=== PATIENT | male | born 1940 | race Caucasian/White ===

== ENCOUNTER 2020-07-09 10:51 | Inpatient (IN) ==
[2020-07-09] MEDS ORDERED: Ondansetron 4 mg VIAL 2 MG/ML 2 ml VIAL IV PRN (11:52)
[2020-07-09] MEDS ORDERED: NS 0.9% 1000 ml BAG 1,000 ML IV SCH (12:00)
[2020-07-09] MEDS ORDERED: Enoxaparin 40 MG/0.4 ML SYR SUBCUT SCH (12:00)
[2020-07-09 12:37] LABS: ABS Lymphocytes 1.3 10^3/ul (1.0-4.8); ABS Monocytes 0.9 10^3/ul (0-0.8); ABS Neutrophils 9.8 10^3/ul (1.5-7.7); Eosinophil % 0.2 %; Hematocrit 41 % (42-52); Hemoglobin 14.2 g/dL (14.0-18.0); Mean Corpuscular HGB Conc 35 g/dL (31-36); Mean Corpuscular Hemoglobin 35 pg (27-31); Mean Corpuscular Volume 100 fL (80-94); Mean Platelet Volume 6.9 fL (7.4-10.4); Platelet Count 352 10^3/uL (150-450); Red Blood Count 4.04 10^6 /uL (4.18-5.48); Red Cell Distribution Width 13 % (10-15)
[2020-07-09 12:57] LABS: BUN/Creatinine Ratio 21.6 (8-20); C Reactive Protein 19.18 mg/L (<8.01); Calcium 9.9 mg/dL (8.6-10.3); EGFR African American 90.8 (>60); Magnesium 2.1 mg/dL (1.9-2.7); Potassium 3.5 mmol/L (3.5-5.0)
[2020-07-09] MEDS: ceFAZolin 2 GM PREMIX 2 GM/50 ML BAG IVPB SCH ×2 (15:41→23:45)
[2020-07-09] MEDS ORDERED: Metoprolol Tartrate 5 mg VIAL 5 ml VIAL (1 mg/ml) IV ONE (16:17)
[2020-07-10] MEDS ORDERED: Metoprolol Tartrate 5 mg VIAL 5 ml VIAL (1 mg/ml) IV ONE ×2 (06:37→08:54)
[2020-07-10] MEDS ORDERED: Metoprolol Tartrate 5 mg VIAL 5 ml VIAL (1 mg/ml) ONE (06:39)
[2020-07-10 07:33] LABS: Blood Urea Nitrogen 15 mg/dL (6-24); CO2 Carbon Dioxide 23 mmol/L (22-32); Calcium 8.9 mg/dL (8.6-10.3); Chloride 102 mmol/L (101-111); EGFR African American 101.6 (>60); Glucose 103 mg/dL (70-100); Magnesium 1.8 mg/dL (1.9-2.7); Sodium 130 mmol/L (135-145)
[2020-07-10] MEDS: Fluticasone NASAL SPRAY 50MCG 16 gm SPRAY BTL BOTH NARES SCH (08:03)
[2020-07-10] MEDS: ceFAZolin 2 GM PREMIX 2 GM/50 ML BAG IVPB SCH ×3 (08:04→23:35)
[2020-07-10 08:40] LABS: Hematocrit 38 % (42-52); Hemoglobin 13.5 g/dL (14.0-18.0); Mean Corpuscular HGB Conc 36 g/dL (31-36); Mean Corpuscular Hemoglobin 35 pg (27-31); Mean Corpuscular Volume 99 fL (80-94); Mean Platelet Volume 7.5 fL (7.4-10.4); Platelet Count 323 10^3/uL (150-450); Red Blood Count 3.82 10^6 /uL (4.18-5.48); Red Cell Distribution Width 12 % (10-15); White Blood Count 9.6 10^3/uL (3.5-10.8)
[2020-07-10 09:43] LABS: Anion Gap 5 mmol/L (2-11)
[2020-07-10] MEDS ORDERED: Magnesium Sulfate 2 gm BAG 2 GM/50 ML BAG IVPB ONE (09:51)
[2020-07-10] MEDS ORDERED: Magnesium Sulfate 2 gm BAG 2 GM/50 ML BAG ONE (09:55)
[2020-07-10 11:10] LABS: TSH Ultra Thyroid Stim Horm 0.85 mcIU/mL (0.34-5.60)
[2020-07-10 11:12] LABS: Free T4 1.46 ng/dL (0.61-1.12)
[2020-07-10 11:14] LABS: Troponin I 0.32 ng/mL (<0.03)
[2020-07-10] MEDS ORDERED: Diltiazem IV push/loading dose 5 MG/ML 5 ML vial (25 mg) IV SLOW PU ONE (11:30)
[2020-07-10] MEDS: Multivitamins/Mins AREDS2 (NF) CAP PO SCH (11:49)
[2020-07-10] MEDS: SPIRIVA Respimat (tiotropium) 2.5 mcg/inh Inhaler INH SCH (12:51)
[2020-07-10 13:04] LABS: Total T3 63 ng/dL (87-178)
[2020-07-10] MEDS ORDERED: Diltiazem (ADVAN VIAL) 100 MG/100 ML ADDV.BAG IV SCH ×3 (14:00→17:27)
[2020-07-10 16:42] LABS: Troponin I 0.27 ng/mL (<0.03)
[2020-07-11 04:32] LABS: ABS Eosinophils 0.1 10^3/ul (0-0.6); ABS Lymphocytes 0.8 10^3/ul (1.0-4.8); ABS Monocytes 1.1 10^3/ul (0-0.8); ABS Neutrophils 9.7 10^3/ul (1.5-7.7); Eosinophil % 1.1 %; Hematocrit 38 % (42-52); Hemoglobin 13.3 g/dL (14.0-18.0); Lymphocyte % 6.7 %; Mean Corpuscular HGB Conc 35 g/dL (31-36); Mean Corpuscular Hemoglobin 35 pg (27-31); Mean Corpuscular Volume 99 fL (80-94); Nucleated Red Blood Cells % 0.1; Platelet Count 329 10^3/uL (150-450); Red Cell Distribution Width 12 % (10-15); White Blood Count 11.7 10^3/uL (3.5-10.8)
[2020-07-11 04:51] LABS: BUN/Creatinine Ratio 18.3 (8-20); Calcium 8.7 mg/dL (8.6-10.3); EGFR African American 110.2 (>60); EGFR Non-African American 91.1 (>60); Potassium 3.5 mmol/L (3.5-5.0)
[2020-07-11] MEDS ORDERED: Potassium Chlor 20 meq TAB.ER PO ONE (05:01)
[2020-07-11] MEDS ORDERED: Naloxone 0.4 mg VIAL 0.4 mg/ml 1 ml VIAL ONE (07:30)
[2020-07-11] MEDS ORDERED: fentaNYL 100 mcg/2 ml 50 MCG/ML VIAL ONE (07:30)
[2020-07-11] MEDS ORDERED: Flumazenil 0.5 mg/5 ml 0.1 MG/ML 5 ml VIAL ONE (07:30)
[2020-07-11] MEDS ORDERED: Midazolam 5 mg/5 ml VIAL 1 mg/ml 5 ml VIAL (5 mg) ONE (07:30)
[2020-07-11] MEDS: ceFAZolin 2 GM PREMIX 2 GM/50 ML BAG IVPB SCH ×3 (07:33→23:10)
[2020-07-11] MEDS: SPIRIVA Respimat (tiotropium) 2.5 mcg/inh Inhaler INH SCH (11:57)
[2020-07-11] MEDS: Fluticasone NASAL SPRAY 50MCG 16 gm SPRAY BTL BOTH NARES SCH (11:57)
[2020-07-11] MEDS: Multivitamins/Mins AREDS2 (NF) CAP PO SCH (11:57)
[2020-07-11] MEDS ORDERED: Enoxaparin 100 MG/ML SYR SUBCUT ONE (16:03)
[2020-07-11] MEDS ORDERED: Enoxaparin 100 MG/ML SYR ONE (16:08)
[2020-07-12] MEDS ORDERED: Lactated Ringers 1000 ml BAG 1,000 ML IV ONE (00:49)
[2020-07-12 05:00] LABS: ABS Eosinophils 0.4 10^3/ul (0-0.6); ABS Lymphocytes 1.6 10^3/ul (1.0-4.8); ABS Monocytes 1.2 10^3/ul (0-0.8); ABS Neutrophils 8.6 10^3/ul (1.5-7.7); Hematocrit 42 % (42-52); Hemoglobin 14.5 g/dL (14.0-18.0); Lymphocyte % 13.8 %; Mean Corpuscular HGB Conc 34 g/dL (31-36); Mean Corpuscular Hemoglobin 34 pg (27-31); Mean Corpuscular Volume 100 fL (80-94); Mean Platelet Volume 7.1 fL (7.4-10.4); Platelet Count 392 10^3/uL (150-450); Red Blood Count 4.21 10^6 /uL (4.18-5.48); Red Cell Distribution Width 12 % (10-15); White Blood Count 11.8 10^3/uL (3.5-10.8)
[2020-07-12 05:07] LABS: INR 1.25 (0.82-1.09)
[2020-07-12 05:24] LABS: BUN/Creatinine Ratio 21.7 (8-20); Calcium 9.5 mg/dL (8.6-10.3); EGFR African American 108.7 (>60); EGFR Non-African American 89.8 (>60); Potassium 4.1 mmol/L (3.5-5.0)
[2020-07-12] MEDS: ceFAZolin 2 GM PREMIX 2 GM/50 ML BAG IVPB SCH ×3 (06:41→23:29)
[2020-07-12] MEDS: Multivitamins/Mins AREDS2 (NF) CAP PO SCH (08:25)
[2020-07-12] MEDS: Fluticasone NASAL SPRAY 50MCG 16 gm SPRAY BTL BOTH NARES SCH (08:27)
[2020-07-12] MEDS: SPIRIVA Respimat (tiotropium) 2.5 mcg/inh Inhaler INH SCH (11:33)
[2020-07-12] MEDS ORDERED: Diltiazem IV push/loading dose 5 MG/ML 5 ML vial (25 mg) IV SLOW PU ONE (12:45)
[2020-07-12] MEDS ORDERED: Diltiazem IV push/loading dose 5 MG/ML 5 ML vial (25 mg) ONE (13:03)
[2020-07-12] MEDS ORDERED: Metoprolol Tartrate 5 mg VIAL 5 ml VIAL (1 mg/ml) IV PRN ×2 (15:20→16:25)
[2020-07-12] MEDS ORDERED: Bupivacaine 0.25% SDV 30 ML ONE (16:40)
[2020-07-12] MEDS: Metoprolol Tartrate 5 mg VIAL 5 ml VIAL (1 mg/ml) IV PRN (17:30)
[2020-07-12] MEDS ORDERED: Lidocaine 1% VIAL 10 MG/ML VIAL ONE (17:59)
[2020-07-13] MEDS: ceFAZolin 2 GM PREMIX 2 GM/50 ML BAG IVPB SCH ×3 (06:43→23:04)
[2020-07-13 07:04] LABS: Hematocrit 41 % (42-52); Hemoglobin 14.4 g/dL (14.0-18.0); Platelet Count 386 10^3/uL (150-450)
[2020-07-13 07:36] LABS: BUN/Creatinine Ratio 20.8 (8-20); Calcium 9.3 mg/dL (8.6-10.3); EGFR African American 118.5 (>60)
[2020-07-13] MEDS: Fluticasone NASAL SPRAY 50MCG 16 gm SPRAY BTL BOTH NARES SCH (08:25)
[2020-07-13] MEDS: SPIRIVA Respimat (tiotropium) 2.5 mcg/inh Inhaler INH SCH (08:25)
[2020-07-13] MEDS: Multivitamins/Mins AREDS2 (NF) CAP PO SCH (08:33)
[2020-07-14 06:04] LABS: Hematocrit 39 % (42-52); Hemoglobin 13.6 g/dL (14.0-18.0); Mean Platelet Volume 6.8 fL (7.4-10.4); Platelet Count 391 10^3/uL (150-450)
[2020-07-14 06:14] LABS: BUN/Creatinine Ratio 21.7 (8-20); Calcium 9.1 mg/dL (8.6-10.3); EGFR African American 108.7 (>60); EGFR Non-African American 89.8 (>60); Potassium 3.8 mmol/L (3.5-5.0)
[2020-07-14] MEDS: ceFAZolin 2 GM PREMIX 2 GM/50 ML BAG IVPB SCH ×3 (07:02→23:14)
[2020-07-14] MEDS: Fluticasone NASAL SPRAY 50MCG 16 gm SPRAY BTL BOTH NARES SCH (08:31)
[2020-07-14] MEDS: SPIRIVA Respimat (tiotropium) 2.5 mcg/inh Inhaler INH SCH (08:32)
[2020-07-14] MEDS: Multivitamins/Mins AREDS2 (NF) CAP PO SCH (08:33)
[2020-07-15 06:57] LABS: Hematocrit 38 % (42-52); Hemoglobin 13.5 g/dL (14.0-18.0); Platelet Count 408 10^3/uL (150-450)
[2020-07-15] MEDS: ceFAZolin 2 GM PREMIX 2 GM/50 ML BAG IVPB SCH ×2 (07:01→15:55)
[2020-07-15 07:18] LABS: BUN/Creatinine Ratio 18.5 (8-20); Calcium 9.1 mg/dL (8.6-10.3); EGFR African American 111.8 (>60); EGFR Non-African American 92.4 (>60); Potassium 3.7 mmol/L (3.5-5.0)
[2020-07-15] MEDS: Multivitamins/Mins AREDS2 (NF) CAP PO SCH (09:08)
[2020-07-15] MEDS: Fluticasone NASAL SPRAY 50MCG 16 gm SPRAY BTL BOTH NARES SCH (09:09)
[2020-07-15] MEDS: SPIRIVA Respimat (tiotropium) 2.5 mcg/inh Inhaler INH SCH (09:09)
[2020-07-15] MEDS: Metoprolol Tartrate 5 mg VIAL 5 ml VIAL (1 mg/ml) IV PRN (09:44)
[2020-07-15] MEDS: Iohexol 350 (CONTRAST) 500 ML MDV IV ONE ×2 (11:13→11:22)
[2020-07-15] MEDS ORDERED: NS 0.9% 500 ml BAG 500 ML IV ONE ×2 (13:19→14:28)
[2020-07-15 15:52] VITALS: BP 127/60
== END 2020-07-15 17:05 | disposition home or self-care (01) | DRG 503 ==
LOC: ED 10:51 → MED 14:23 → MEDTELE 07-10 13:12 → ICU 07-10 20:08 → SSU 07-12 19:38
PROVIDERS: ADMIT Internal Medicine; ATTEND Student in an Organized Health Care Education/Training Program

== ENCOUNTER 2020-07-18 17:28 | Inpatient (IN) ==
[2020-07-18] MEDS ORDERED: Morphine 4 MG/ML VIAL (1 ml) IV ONE (18:00)
[2020-07-18] MEDS ORDERED: NS 0.9% 1000 ml BAG 1,000 ML IV ONE ×2 (18:00→19:45)
[2020-07-18] MEDS ORDERED: Ondansetron 4 mg VIAL 2 MG/ML 2 ml VIAL IV ONE (18:02)
[2020-07-18] MEDS ORDERED: Pantoprazole VIAL 40 MG VIAL IV ONE (18:07)
[2020-07-18] MEDS ORDERED: Iohexol 300 (CONTRAST) 10 ML SDV IV ONE (18:16)
[2020-07-18 18:23] LABS: ABS Basophils 0.1 10^3/ul (0-0.2); ABS Eosinophils 0.1 10^3/ul (0-0.6); ABS Lymphocytes 0.7 10^3/ul (1.0-4.8); ABS Monocytes 0.6 10^3/ul (0-0.8); ABS Neutrophils 16.1 10^3/ul (1.5-7.7); Eosinophil % 0.3 %; Hematocrit 40 % (42-52); Lymphocyte % 4.1 %; Mean Corpuscular HGB Conc 35 g/dL (31-36); Mean Corpuscular Hemoglobin 35 pg (27-31); Mean Corpuscular Volume 99 fL (80-94); Mean Platelet Volume 6.4 fL (7.4-10.4); Platelet Count 464 10^3/uL (150-450); Red Cell Distribution Width 12 % (10-15); White Blood Count 17.5 10^3/uL (3.5-10.8)
[2020-07-18 18:43] LABS: Albumin 3.7 g/dL (3.2-5.2); Albumin/Globulin Ratio 1.2 (1-3); BUN/Creatinine Ratio 21.1 (8-20); C Reactive Protein 20.26 mg/L (<8.01); Calcium 9.9 mg/dL (8.6-10.3); EGFR African American 120.3 (>60); EGFR Non-African American 99.5 (>60); Potassium 3.9 mmol/L (3.5-5.0); Total Bilirubin 0.9 mg/dL (0.2-1.0); Total Protein 6.7 g/dL (6.4-8.9)
[2020-07-18] MEDS ORDERED: Morphine 2 MG/ML SYRINGE IV PRN (23:29)
[2020-07-18] MEDS ORDERED: ceFAZolin 2 GM PREMIX 2 GM/50 ML BAG IVPB ONE (23:30)
[2020-07-18] MEDS ORDERED: Ondansetron 4 mg VIAL 2 MG/ML 2 ml VIAL IV PRN (23:37)
[2020-07-18] MEDS ORDERED: Furosemide 40 mg/4 ml IV VIAL IV ONE (23:46)
[2020-07-18] MEDS ORDERED: Enalaprilat IV 1.25 mg/ml 1 ml VIAL (1.25 MG) IV PRN (23:59)
[2020-07-19] MEDS ORDERED: ceFAZolin VIAL 2 GM in NS 0.9% 100 ml BAG 100 ML IVPB SCH
[2020-07-19] MEDS: ceFAZolin 2 GM PREMIX 2 GM/50 ML BAG IVPB SCH ×2 (01:37→08:25)
[2020-07-19] MEDS: NS 0.9% 1000 ml BAG 1,000 ML IV SCH ×2 (01:37→14:14)
[2020-07-19] MEDS: Metoprolol Tartrate 5 mg VIAL 5 ml VIAL (1 mg/ml) IV SCH ×4 (01:57→17:19)
[2020-07-19] MEDS ORDERED: Heparin 5000 UNITS/ML 1 mL VIAL SUBCUT SCH (06:00)
[2020-07-19 06:43] LABS: ABS Lymphocytes 0.6 10^3/ul (1.0-4.8); ABS Monocytes 0.9 10^3/ul (0-0.8); ABS Neutrophils 15.2 10^3/ul (1.5-7.7); Eosinophil % 0.3 %; Hematocrit 39 % (42-52); Hemoglobin 13.7 g/dL (14.0-18.0); Lymphocyte % 3.8 %; Mean Corpuscular HGB Conc 35 g/dL (31-36); Mean Corpuscular Hemoglobin 34 pg (27-31); Mean Corpuscular Volume 98 fL (80-94); Mean Platelet Volume 6.5 fL (7.4-10.4); Platelet Count 463 10^3/uL (150-450); Red Blood Count 3.99 10^6 /uL (4.18-5.48); Red Cell Distribution Width 12 % (10-15); White Blood Count 16.8 10^3/uL (3.5-10.8)
[2020-07-19 07:01] LABS: BUN/Creatinine Ratio 17.1 (8-20); EGFR African American 120.3 (>60); EGFR Non-African American 99.5 (>60); Potassium 3.9 mmol/L (3.5-5.0)
[2020-07-19] MEDS: SPIRIVA Respimat (tiotropium) 2.5 mcg/inh Inhaler INH SCH (08:33)
[2020-07-19] MEDS: Pantoprazole VIAL 40 MG VIAL IV SCH (08:54)
[2020-07-19] MEDS ORDERED: Furosemide 20 mg/2 ml IV VIAL IV SLOW PU SCH (09:00)
[2020-07-19] MEDS: Enoxaparin 100 MG/ML SYR SUBCUT SCH ×2 (11:38→22:12)
[2020-07-19] MEDS: ceFAZolin 2 GM in NS 100 MLS Q8H (Pharmacy Admix) IVPB SCH (17:18)
[2020-07-20] MEDS: ceFAZolin 2 GM in NS 100 MLS Q8H (Pharmacy Admix) IVPB SCH ×2 (00:15→09:27)
[2020-07-20] MEDS: Metoprolol Tartrate 5 mg VIAL 5 ml VIAL (1 mg/ml) IV SCH ×4 (00:15→17:39)
[2020-07-20 07:02] LABS: ABS Eosinophils 0.1 10^3/ul (0-0.6); ABS Monocytes 0.7 10^3/ul (0-0.8); ABS Neutrophils 6.4 10^3/ul (1.5-7.7); Eosinophil % 1.3 %; Hematocrit 36 % (42-52); Hemoglobin 12.5 g/dL (14.0-18.0); Lymphocyte % 11.8 %; Mean Corpuscular HGB Conc 35 g/dL (31-36); Mean Corpuscular Hemoglobin 35 pg (27-31); Mean Corpuscular Volume 99 fL (80-94); Mean Platelet Volume 6.6 fL (7.4-10.4); Platelet Count 412 10^3/uL (150-450); Red Blood Count 3.61 10^6 /uL (4.18-5.48); Red Cell Distribution Width 13 % (10-15); White Blood Count 8.2 10^3/uL (3.5-10.8)
[2020-07-20 07:19] LABS: BUN/Creatinine Ratio 25.3 (8-20); Calcium 8.8 mg/dL (8.6-10.3); EGFR Non-African American 76.9 (>60); Magnesium 1.9 mg/dL (1.9-2.7); Potassium 3.8 mmol/L (3.5-5.0)
[2020-07-20] MEDS: Enoxaparin 100 MG/ML SYR SUBCUT SCH (09:28)
[2020-07-20] MEDS: Pantoprazole VIAL 40 MG VIAL IV SCH (09:29)
[2020-07-20] MEDS: SPIRIVA Respimat (tiotropium) 2.5 mcg/inh Inhaler INH SCH (09:30)
[2020-07-20] MEDS ORDERED: Furosemide 20 mg/2 ml IV VIAL IV SLOW PU ONE (11:55)
[2020-07-20] MEDS: ceFAZolin 2 GM PREMIX 2 GM/50 ML BAG IVPB SCH (15:15)
[2020-07-21] MEDS: ceFAZolin 2 GM PREMIX 2 GM/50 ML BAG IVPB SCH ×3 (00:28→16:02)
[2020-07-21] MEDS: Metoprolol Tartrate 5 mg VIAL 5 ml VIAL (1 mg/ml) IV SCH ×2 (00:28→05:40)
[2020-07-21 06:48] LABS: BUN/Creatinine Ratio 21.5 (8-20); EGFR African American 115.1 (>60); EGFR Non-African American 95.1 (>60); Potassium 3.8 mmol/L (3.5-5.0)
[2020-07-21] MEDS: SPIRIVA Respimat (tiotropium) 2.5 mcg/inh Inhaler INH SCH (08:00)
[2020-07-21] MEDS: Pantoprazole VIAL 40 MG VIAL IV SCH (08:55)
[2020-07-21] MEDS ORDERED: Furosemide 20 mg/2 ml IV VIAL IV SLOW PU ONE (10:51)
[2020-07-22] MEDS: ceFAZolin 2 GM PREMIX 2 GM/50 ML BAG IVPB SCH ×2 (00:14→08:34)
[2020-07-22] MEDS: SPIRIVA Respimat (tiotropium) 2.5 mcg/inh Inhaler INH SCH (08:40)
[2020-07-22 11:39] VITALS: BP 143/74
== END 2020-07-22 14:02 | disposition home or self-care (01) | DRG 388 ==
LOC: ED 17:28 → SSU 22:56
PROVIDERS: ADMIT Student in an Organized Health Care Education/Training Program; ATTEND Internal Medicine

== ENCOUNTER 2020-07-25 02:24 | Inpatient (IN) ==
[2020-07-25] MEDS ORDERED: NS 0.9% 1000 ml BAG 1,000 ML IV ONE (02:28)
[2020-07-25 03:28] LABS: ABS Lymphocytes 0.7 10^3/ul (1.0-4.8); ABS Monocytes 0.9 10^3/ul (0-0.8); ABS Neutrophils 7.6 10^3/ul (1.5-7.7); Eosinophil % 0.1 %; Hematocrit 41 % (42-52); Hemoglobin 14.3 g/dL (14.0-18.0); Lymphocyte % 7.2 %; Mean Corpuscular HGB Conc 35 g/dL (31-36); Mean Corpuscular Hemoglobin 34 pg (27-31); Mean Corpuscular Volume 98 fL (80-94); Platelet Count 477 10^3/uL (150-450); Red Blood Count 4.21 10^6 /uL (4.18-5.48); Red Cell Distribution Width 13 % (10-15); White Blood Count 9.2 10^3/uL (3.5-10.8)
[2020-07-25 03:34] LABS: Activated Partial Thrombo Time 33.2 seconds (26.0-38.0); INR 1.77 (0.82-1.09)
[2020-07-25 03:44] LABS: Albumin 3.9 g/dL (3.2-5.2); Albumin/Globulin Ratio 1.2 (1-3); BUN/Creatinine Ratio 17.8 (8-20); C Reactive Protein 59.68 mg/L (<8.01); Calcium 10.4 mg/dL (8.6-10.3); EGFR African American 65.3 (>60); Globulin 3.3 g/dL (2-4); Magnesium 1.8 mg/dL (1.9-2.7); Potassium 3.5 mmol/L (3.5-5.0); Total Bilirubin 0.7 mg/dL (0.2-1.0); Total Protein 7.2 g/dL (6.4-8.9)
[2020-07-25] MEDS ORDERED: Magnesium Sulfate IV 1GM/100ML 1 GM/100 ML BAG IV ONE ×2 (03:56→18:30)
[2020-07-25] MEDS ORDERED: Iodixanol (CONTRAST) 320 MG/ML 100 ML SDV IV ONE (04:13)
[2020-07-25] MEDS ORDERED: Ondansetron 4 mg VIAL 2 MG/ML 2 ml VIAL IV ONE (05:00)
[2020-07-25] MEDS: NS 0.9% 1000 ml BAG 1,000 ML IV SCH (10:06)
[2020-07-25] MEDS: Ondansetron 4 mg VIAL 2 MG/ML 2 ml VIAL IV PRN ×2 (10:20→16:41)
[2020-07-25] MEDS: Multivitamins/Minerals TAB PO SCH (12:11)
[2020-07-25] MEDS: ceFAZolin 2 GM PREMIX 2 GM/50 ML BAG IVPB SCH ×2 (15:49→22:15)
[2020-07-25] MEDS: SPIRIVA Respimat (tiotropium) 2.5 mcg/inh Inhaler INH SCH (15:49)
[2020-07-25] MEDS: Enoxaparin 100 MG/ML SYR SUBCUT SCH (15:50)
[2020-07-26] MEDS: NS 0.9% 1000 ml BAG 1,000 ML IV SCH ×2 (01:21→18:00)
[2020-07-26] MEDS: Enoxaparin 100 MG/ML SYR SUBCUT SCH ×2 (03:04→14:32)
[2020-07-26] MEDS: ceFAZolin 2 GM PREMIX 2 GM/50 ML BAG IVPB SCH ×3 (05:36→21:24)
[2020-07-26 06:03] LABS: ABS Lymphocytes 0.6 10^3/ul (1.0-4.8); ABS Monocytes 1.1 10^3/ul (0-0.8); ABS Neutrophils 4.1 10^3/ul (1.5-7.7); Eosinophil % 0.3 %; Hematocrit 36 % (42-52); Hemoglobin 12.5 g/dL (14.0-18.0); Mean Corpuscular HGB Conc 35 g/dL (31-36); Mean Corpuscular Hemoglobin 34 pg (27-31); Mean Corpuscular Volume 99 fL (80-94); Mean Platelet Volume 6.8 fL (7.4-10.4); Platelet Count 398 10^3/uL (150-450); Red Blood Count 3.65 10^6 /uL (4.18-5.48); Red Cell Distribution Width 13 % (10-15); White Blood Count 5.8 10^3/uL (3.5-10.8)
[2020-07-26 06:19] LABS: BUN/Creatinine Ratio 20.8 (8-20); Calcium 9.1 mg/dL (8.6-10.3); EGFR African American 67.8 (>60); Magnesium 2.1 mg/dL (1.9-2.7); Potassium 3.7 mmol/L (3.5-5.0)
[2020-07-26] MEDS: Multivitamins/Minerals TAB PO SCH (10:16)
[2020-07-26] MEDS: SPIRIVA Respimat (tiotropium) 2.5 mcg/inh Inhaler INH SCH (12:27)
[2020-07-26 21:40] LABS: Urine Appearance Cloudy; Urine Bilirubin Negative (Negative); Urine Blood Negative (Negative); Urine Color Amber; Urine Glucose Negative (Negative); Urine Ketones 1+ (Negative); Urine Nitrite Negative (Negative); Urine Protein 2+(100 mg/dL) (Negative); Urine Urobilinogen Negative (Negative)
[2020-07-26 22:11] LABS: Urine Bacteria Absent (Absent); Urine Red Blood Cell 1+(3-5/hpf) (Absent); Urine Squamous Epithelial Cell Present (Absent); Urine White Blood Cell Trace(0-5/hpf) (Absent)
[2020-07-27] MEDS: NS 0.9% 1000 ml BAG 1,000 ML IV SCH ×2 (05:19→16:01)
[2020-07-27] MEDS: Enoxaparin 100 MG/ML SYR SUBCUT SCH ×2 (05:52→17:02)
[2020-07-27] MEDS: ceFAZolin 2 GM PREMIX 2 GM/50 ML BAG IVPB SCH ×3 (05:53→21:25)
[2020-07-27 06:15] LABS: ABS Lymphocytes 0.6 10^3/ul (1.0-4.8); ABS Monocytes 0.8 10^3/ul (0-0.8); ABS Neutrophils 4.6 10^3/ul (1.5-7.7); Eosinophil % 0.2 %; Hematocrit 36 % (42-52); Hemoglobin 12.2 g/dL (14.0-18.0); Lymphocyte % 10.1 %; Mean Corpuscular HGB Conc 34 g/dL (31-36); Mean Corpuscular Hemoglobin 34 pg (27-31); Mean Corpuscular Volume 100 fL (80-94); Mean Platelet Volume 6.7 fL (7.4-10.4); Platelet Count 379 10^3/uL (150-450); Red Blood Count 3.62 10^6 /uL (4.18-5.48); Red Cell Distribution Width 13 % (10-15)
[2020-07-27 06:29] LABS: BUN/Creatinine Ratio 24.5 (8-20); Calcium 8.9 mg/dL (8.6-10.3); EGFR Non-African American 67.7 (>60); Potassium 3.6 mmol/L (3.5-5.0)
[2020-07-27] MEDS: SPIRIVA Respimat (tiotropium) 2.5 mcg/inh Inhaler INH SCH (07:59)
[2020-07-27] MEDS: Multivitamins/Minerals TAB PO SCH ×2 (08:21→08:32)
[2020-07-27] MEDS ORDERED: Sodium Phosphate ADULT ENEMA 133 ML BTL PR ONE (08:43)
[2020-07-27] MEDS ORDERED: Midazolam 10 mg/10 ml VIAL 1 mg/ml 10 ml VIAL (10 mg) ONE (10:40)
[2020-07-27] MEDS ORDERED: fentaNYL 100 mcg/2 ml 50 MCG/ML VIAL ONE (10:40)
[2020-07-27] MEDS ORDERED: TPN 24 HR with Sodium Chloride CONC. 4 MEQ/ML 100 MEQ, Potassium Chloride TPN 50 MEQ, P... CENT\\PICC SCH (17:00)
[2020-07-28] MEDS: NS 0.9% 1000 ml BAG 1,000 ML IV SCH (02:31)
[2020-07-28] MEDS: ceFAZolin 2 GM PREMIX 2 GM/50 ML BAG IVPB SCH ×3 (05:12→21:23)
[2020-07-28] MEDS: Enoxaparin 100 MG/ML SYR SUBCUT SCH ×2 (05:12→16:38)
[2020-07-28 05:44] LABS: ALT < 3 U/L (7-52); AST 7 U/L (13-39); Albumin 2.7 g/dL (3.2-5.2); Albumin/Globulin Ratio 1.1 (1-3); Alkaline Phosphatase 53 U/L (34-104); Anion Gap 6 mmol/L (2-11); BUN/Creatinine Ratio 20.7 (8-20); Blood Urea Nitrogen 19 mg/dL (6-24); CO2 Carbon Dioxide 25 mmol/L (22-32); Calcium 8.7 mg/dL (8.6-10.3); Chloride 110 mmol/L (101-111); Cholesterol 73 mg/dL; EGFR African American 96.5 (>60); EGFR Non-African American 79.8 (>60); Globulin 2.5 g/dL (2-4); Glucose 92 mg/dL (70-100); Phosphorus 1.7 mg/dL (2.5-5.0); Potassium 3.4 mmol/L (3.5-5.0); Sodium 141 mmol/L (135-145); Total Protein 5.2 g/dL (6.4-8.9); Triglycerides 94 mg/dL
[2020-07-28 05:45] LABS: Prealbumin 5 mg/dL (18-38)
[2020-07-28 06:12] LABS: Folate 17.79 ng/mL (>3.99)
[2020-07-28 06:13] LABS: Vitamin B12 1021 pg/mL (180-914)
[2020-07-28] MEDS ORDERED: Magnesium Sulfate 2 gm BAG 2 GM/50 ML BAG IVPB ONE (06:33)
[2020-07-28] MEDS ORDERED: Potassium Chloride LIQUID 20 MEQ/15 ML LIQUID PO ONE (06:33)
[2020-07-28] MEDS: SPIRIVA Respimat (tiotropium) 2.5 mcg/inh Inhaler INH SCH (08:20)
[2020-07-28] MEDS: Multivitamins/Minerals TAB PO SCH (08:26)
[2020-07-28] MEDS: TPN 24 HR with Dextrose 50% Water 500 ML, Amino Acid Infusion 10% 850 ML, Sterile Water... CENTR SCH (16:36)
[2020-07-28] MEDS: Metoprolol Tartrate 5 mg VIAL 5 ml VIAL (1 mg/ml) IV PRN (21:16)
[2020-07-29] MEDS ORDERED: Dextrose 50% Syringe 50 ml 25 GM/50 ML SYRINGE IV PUSH PRN ×2 (00:45→00:47)
[2020-07-29] MEDS: Enoxaparin 100 MG/ML SYR SUBCUT SCH ×2 (05:21→16:38)
[2020-07-29] MEDS: ceFAZolin 2 GM PREMIX 2 GM/50 ML BAG IVPB SCH ×3 (05:30→22:06)
[2020-07-29 05:43] LABS: ALT < 3 U/L (7-52); AST 8 U/L (13-39); Albumin 2.7 g/dL (3.2-5.2); Alkaline Phosphatase 51 U/L (34-104); Anion Gap 4 mmol/L (2-11); Blood Urea Nitrogen 18 mg/dL (6-24); CO2 Carbon Dioxide 26 mmol/L (22-32); Calcium 8.6 mg/dL (8.6-10.3); Chloride 109 mmol/L (101-111); Cholesterol 76 mg/dL; EGFR African American 87.7 (>60); EGFR Non-African American 72.5 (>60); Globulin 2.6 g/dL (2-4); Glucose 142 mg/dL (70-100); Magnesium 1.9 mg/dL (1.9-2.7); Potassium 3.5 mmol/L (3.5-5.0); Sodium 139 mmol/L (135-145); Total Protein 5.3 g/dL (6.4-8.9); Triglycerides 98 mg/dL
[2020-07-29 05:47] LABS: Phosphorus < 1.0 mg/dL (2.5-5.0)
[2020-07-29 06:12] LABS: Prealbumin 5 mg/dL (18-38)
[2020-07-29] MEDS ORDERED: Potassium Phosphate IV 15 MMOLE in NS 0.9% 250 ml 250 ML IVPB ONE (06:15)
[2020-07-29] MEDS: Multivitamins/Minerals TAB PO SCH (08:04)
[2020-07-29] MEDS: SPIRIVA Respimat (tiotropium) 2.5 mcg/inh Inhaler INH SCH (09:08)
[2020-07-29] MEDS: Metoprolol Tartrate 5 mg VIAL 5 ml VIAL (1 mg/ml) IV PRN ×2 (09:26→16:57)
[2020-07-29] MEDS: TPN 24 HR with Dextrose 50% Water 500 ML, Amino Acid Infusion 10% 850 ML, Sterile Water... CENTR SCH (16:38)
[2020-07-29 17:34] LABS: ABS Eosinophils 0.1 10^3/ul (0-0.6); ABS Monocytes 0.9 10^3/ul (0-0.8); ABS Neutrophils 5.3 10^3/ul (1.5-7.7); Eosinophil % 0.7 %; Hematocrit 34 % (42-52); Lymphocyte % 13.3 %; Mean Corpuscular HGB Conc 35 g/dL (31-36); Mean Corpuscular Hemoglobin 35 pg (27-31); Mean Corpuscular Volume 99 fL (80-94); Mean Platelet Volume 6.7 fL (7.4-10.4); Platelet Count 346 10^3/uL (150-450); Red Blood Count 3.44 10^6 /uL (4.18-5.48); Red Cell Distribution Width 13 % (10-15); White Blood Count 7.3 10^3/uL (3.5-10.8)
[2020-07-29 17:59] LABS: ALT 4 U/L (7-52); AST 13 U/L (13-39); Albumin 2.7 g/dL (3.2-5.2); Alkaline Phosphatase 53 U/L (34-104); Anion Gap 6 mmol/L (2-11); BUN/Creatinine Ratio 15.3 (8-20); Blood Urea Nitrogen 17 mg/dL (6-24); CO2 Carbon Dioxide 25 mmol/L (22-32); Calcium 8.7 mg/dL (8.6-10.3); Chloride 109 mmol/L (101-111); Cholesterol 79 mg/dL; EGFR African American 77.7 (>60); EGFR Non-African American 64.2 (>60); Globulin 2.8 g/dL (2-4); Glucose 151 mg/dL (70-100); Magnesium 1.8 mg/dL (1.9-2.7); Potassium 3.4 mmol/L (3.5-5.0); Sodium 140 mmol/L (135-145); Total Protein 5.5 g/dL (6.4-8.9); Triglycerides 101 mg/dL
[2020-07-29 18:45] LABS: Prealbumin < 3 mg/dL (18-38)
[2020-07-30 05:15] LABS: Albumin 2.8 g/dL (3.2-5.2); BUN/Creatinine Ratio 17.5 (8-20); Calcium 8.9 mg/dL (8.6-10.3); EGFR African American 90.8 (>60); Globulin 2.8 g/dL (2-4); Magnesium 1.8 mg/dL (1.9-2.7); Phosphorus 1.3 mg/dL (2.5-5.0); Potassium 3.4 mmol/L (3.5-5.0); Total Protein 5.6 g/dL (6.4-8.9)
[2020-07-30 05:16] LABS: Total Bilirubin 0.4 mg/dL (0.2-1.0)
[2020-07-30] MEDS: Enoxaparin 100 MG/ML SYR SUBCUT SCH (05:16)
[2020-07-30] MEDS: ceFAZolin 2 GM PREMIX 2 GM/50 ML BAG IVPB SCH ×3 (05:18→22:51)
[2020-07-30] MEDS ORDERED: Potassium Chlor 20 meq TAB.ER PO ONE (07:30)
[2020-07-30] MEDS ORDERED: Potassium Phosphate IV 10 MMOLE in NS 0.9% 250 ml 250 ML IVPB ONE (08:30)
[2020-07-30] MEDS: Multivitamins/Minerals TAB PO SCH (09:29)
[2020-07-30] MEDS: SPIRIVA Respimat (tiotropium) 2.5 mcg/inh Inhaler INH SCH (09:37)
[2020-07-30] MEDS: POTASSIUM CHLORIDE TPN CENT\\PICC SCH (16:56)
[2020-07-30] MEDS: TPN CENT\\PICC SCH (16:56)
[2020-07-30] MEDS: [UNRECOGNIZED DRUG - OTHER] CENT\\PICC SCH (16:56)
[2020-07-30] MEDS: SODIUM CHLORIDE CENT\\PICC SCH (16:56)
[2020-07-31] MEDS: ceFAZolin 2 GM PREMIX 2 GM/50 ML BAG IVPB SCH ×3 (06:07→21:05)
[2020-07-31 06:32] LABS: BUN/Creatinine Ratio 18.9 (8-20); Calcium 8.7 mg/dL (8.6-10.3); EGFR Non-African American 76.9 (>60); Potassium 3.8 mmol/L (3.5-5.0)
[2020-07-31 08:03] LABS: Phosphorus 1.4 mg/dL (2.5-5.0)
[2020-07-31] MEDS: SPIRIVA Respimat (tiotropium) 2.5 mcg/inh Inhaler INH SCH (09:42)
[2020-07-31] MEDS: Multivitamins/Minerals TAB PO SCH (09:42)
[2020-07-31] MEDS ORDERED: Potassium Phosphate IV 10 MMOLE in NS 0.9% 250 ml 250 ML IVPB ONE (12:00)
[2020-07-31] MEDS: methylPREDNISolone SOD 40 mg/ml 1 ml VIAL IV SCH ×2 (12:56→20:31)
[2020-07-31] MEDS: POTASSIUM CHLORIDE TPN CENT\\PICC SCH (17:03)
[2020-07-31] MEDS: SODIUM CHLORIDE CENT\\PICC SCH (17:03)
[2020-07-31] MEDS: [UNRECOGNIZED DRUG - OTHER] CENT\\PICC SCH (17:03)
[2020-07-31] MEDS: TPN CENT\\PICC SCH (17:03)
[2020-08-01] MEDS: methylPREDNISolone SOD 40 mg/ml 1 ml VIAL IV SCH ×3 (04:03→22:08)
[2020-08-01] MEDS: ceFAZolin 2 GM PREMIX 2 GM/50 ML BAG IVPB SCH ×3 (05:24→22:05)
[2020-08-01 06:30] LABS: ABS Lymphocytes 0.7 10^3/ul (1.0-4.8); ABS Monocytes 0.6 10^3/ul (0-0.8); Eosinophil % 0.1 %; Hematocrit 34 % (42-52); Hemoglobin 11.8 g/dL (14.0-18.0); Lymphocyte % 8.3 %; Mean Corpuscular HGB Conc 35 g/dL (31-36); Mean Corpuscular Hemoglobin 34 pg (27-31); Mean Corpuscular Volume 98 fL (80-94); Mean Platelet Volume 7.3 fL (7.4-10.4); Platelet Count 274 10^3/uL (150-450); Red Blood Count 3.47 10^6 /uL (4.18-5.48); Red Cell Distribution Width 13 % (10-15); White Blood Count 8.2 10^3/uL (3.5-10.8)
[2020-08-01] MEDS ORDERED: Magnesium Hydroxide LIQ 30 ML UDC PO PRN (06:42)
[2020-08-01] MEDS ORDERED: Senna TAB 8.6 mg TAB PO PRN (06:42)
[2020-08-01 06:45] LABS: Albumin 2.7 g/dL (3.2-5.2); Albumin/Globulin Ratio 0.9 (1-3); C Reactive Protein 47.94 mg/L (<8.01); Calcium 8.8 mg/dL (8.6-10.3); EGFR African American 91.9 (>60); Magnesium 2.3 mg/dL (1.9-2.7); Phosphorus 1.1 mg/dL (2.5-5.0); Potassium 4.3 mmol/L (3.5-5.0); Total Bilirubin 0.3 mg/dL (0.2-1.0); Total Protein 5.7 g/dL (6.4-8.9)
[2020-08-01] MEDS: SPIRIVA Respimat (tiotropium) 2.5 mcg/inh Inhaler INH SCH (07:42)
[2020-08-01] MEDS: Multivitamins/Minerals TAB PO SCH (07:43)
[2020-08-01] MEDS ORDERED: Potassium Phosphate IV 15 MMOLE in NS 0.9% 250 ml 250 ML IVPB ONE (08:30)
[2020-08-01] MEDS ORDERED: TPN CENT\\PICC SCH ×2 (12:02→17:01)
[2020-08-01] MEDS ORDERED: SODIUM CHLORIDE CENT\\PICC SCH ×2 (12:02→17:01)
[2020-08-01] MEDS ORDERED: POTASSIUM CHLORIDE TPN CENT\\PICC SCH ×2 (12:02→17:01)
[2020-08-01] MEDS ORDERED: [UNRECOGNIZED DRUG - OTHER] CENT\\PICC SCH ×2 (12:02→17:01)
[2020-08-02] MEDS: methylPREDNISolone SOD 40 mg/ml 1 ml VIAL IV SCH ×2 (04:27→15:28)
[2020-08-02] MEDS: ceFAZolin 2 GM PREMIX 2 GM/50 ML BAG IVPB SCH ×3 (05:07→23:41)
[2020-08-02 05:44] LABS: Albumin 2.6 g/dL (3.2-5.2); Albumin/Globulin Ratio 0.9 (1-3); Calcium 8.6 mg/dL (8.6-10.3); EGFR African American 122.2 (>60); Globulin 2.8 g/dL (2-4); Indirect Bilirubin 0.3 mg/dL (0.3-1.0); Phosphorus 2.1 mg/dL (2.5-5.0); Potassium 4.5 mmol/L (3.5-5.0); Total Bilirubin 0.4 mg/dL (0.2-1.0); Total Protein 5.4 g/dL (6.4-8.9)
[2020-08-02 09:41] LABS: Magnesium 2.2 mg/dL (1.9-2.7)
[2020-08-02] MEDS: Multivitamins/Minerals TAB PO SCH (12:30)
[2020-08-02] MEDS: SPIRIVA Respimat (tiotropium) 2.5 mcg/inh Inhaler INH SCH (15:22)
[2020-08-02] MEDS ORDERED: TPN CENTRAL STANDARD BASE A CENTR SCH (17:00)
[2020-08-02] MEDS ORDERED: NS 0.9% 250 ml 250 ML ONE (17:33)
[2020-08-02] MEDS ORDERED: Potassium Phosphate IV 10 MMOLE in NS 0.9% 250 ml 250 ML IVPB ONE (18:00)
[2020-08-03] MEDS: ceFAZolin 2 GM PREMIX 2 GM/50 ML BAG IVPB SCH ×3 (05:57→21:25)
[2020-08-03 06:23] LABS: Hematocrit 33 % (42-52); Hemoglobin 11.3 g/dL (14.0-18.0); Mean Corpuscular HGB Conc 34 g/dL (31-36); Mean Corpuscular Hemoglobin 34 pg (27-31); Mean Corpuscular Volume 99 fL (80-94); Mean Platelet Volume 7.3 fL (7.4-10.4); Platelet Count 277 10^3/uL (150-450); Red Blood Count 3.35 10^6 /uL (4.18-5.48); Red Cell Distribution Width 13 % (10-15); White Blood Count 8.8 10^3/uL (3.5-10.8)
[2020-08-03 06:34] LABS: Albumin 2.7 g/dL (3.2-5.2); BUN/Creatinine Ratio 36.9 (8-20); Calcium 8.9 mg/dL (8.6-10.3); EGFR African American 144.1 (>60); EGFR Non-African American 119.1 (>60); Globulin 2.7 g/dL (2-4); Magnesium 2.2 mg/dL (1.9-2.7); Phosphorus 2.9 mg/dL (2.5-5.0); Potassium 4.5 mmol/L (3.5-5.0); Total Bilirubin 0.3 mg/dL (0.2-1.0); Total Protein 5.4 g/dL (6.4-8.9)
[2020-08-03 07:23] LABS: ABS Lymphocytes 0.5 10^3/ul (1.0-4.8); ABS Monocytes 0.7 10^3/ul (0-0.8); ABS Neutrophils 7.6 10^3/ul (1.5-7.7); Lymphocyte % 5.6 %
[2020-08-03] MEDS: SPIRIVA Respimat (tiotropium) 2.5 mcg/inh Inhaler INH SCH (08:08)
[2020-08-03] MEDS: Multivitamins/Minerals TAB PO SCH (09:52)
[2020-08-04] MEDS: ceFAZolin 2 GM PREMIX 2 GM/50 ML BAG IVPB SCH ×3 (06:08→21:05)
[2020-08-04] MEDS: SPIRIVA Respimat (tiotropium) 2.5 mcg/inh Inhaler INH SCH (07:36)
[2020-08-04] MEDS: Multivitamins/Minerals TAB PO SCH (08:10)
[2020-08-05] MEDS: ceFAZolin 2 GM PREMIX 2 GM/50 ML BAG IVPB SCH ×3 (06:08→21:38)
[2020-08-05] MEDS: Multivitamins/Minerals TAB PO SCH (08:31)
[2020-08-05] MEDS: SPIRIVA Respimat (tiotropium) 2.5 mcg/inh Inhaler INH SCH (08:35)
[2020-08-05] MEDS ORDERED: Polyethylene Glycol 3350 17 GM PACKET ONE (15:27)
[2020-08-05] MEDS: Polyethylene Glycol 3350 17 GM PACKET PO SCH ×2 (15:30→21:37)
[2020-08-06] MEDS: ceFAZolin 2 GM PREMIX 2 GM/50 ML BAG IVPB SCH ×3 (05:53→21:51)
[2020-08-06] MEDS: Polyethylene Glycol 3350 17 GM PACKET PO SCH ×2 (08:35→20:51)
[2020-08-06] MEDS: Multivitamins/Minerals TAB PO SCH (08:36)
[2020-08-06] MEDS: SPIRIVA Respimat (tiotropium) 2.5 mcg/inh Inhaler INH SCH (08:46)
[2020-08-07] MEDS: ceFAZolin 2 GM PREMIX 2 GM/50 ML BAG IVPB SCH ×3 (05:36→21:47)
[2020-08-07 05:39] LABS: ABS Lymphocytes 0.6 10^3/ul (1.0-4.8); ABS Monocytes 0.3 10^3/ul (0-0.8); ABS Neutrophils 7.1 10^3/ul (1.5-7.7); Eosinophil % 0.2 %; Hematocrit 33 % (42-52); Hemoglobin 11.9 g/dL (14.0-18.0); Lymphocyte % 7.9 %; Mean Corpuscular HGB Conc 36 g/dL (31-36); Mean Corpuscular Hemoglobin 34 pg (27-31); Mean Corpuscular Volume 96 fL (80-94); Mean Platelet Volume 6.8 fL (7.4-10.4); Platelet Count 363 10^3/uL (150-450); Red Blood Count 3.46 10^6 /uL (4.18-5.48); Red Cell Distribution Width 13 % (10-15); White Blood Count 8.1 10^3/uL (3.5-10.8)
[2020-08-07 05:56] LABS: BUN/Creatinine Ratio 34.3 (8-20); Calcium 8.9 mg/dL (8.6-10.3); EGFR African American 139.2 (>60); Magnesium 1.9 mg/dL (1.9-2.7); Phosphorus 2.1 mg/dL (2.5-5.0)
[2020-08-07] MEDS ORDERED: Potassium Phosphate IV 10 MMOLE in NS 0.9% 250 ml 250 ML IVPB ONE (07:45)
[2020-08-07] MEDS: SPIRIVA Respimat (tiotropium) 2.5 mcg/inh Inhaler INH SCH (08:28)
[2020-08-07] MEDS: Multivitamins/Minerals TAB PO SCH (08:39)
[2020-08-07] MEDS: Polyethylene Glycol 3350 17 GM PACKET PO SCH ×2 (08:39→21:40)
[2020-08-07] MEDS: [UNRECOGNIZED DRUG - NUTRITION] CENTR SCH (16:59)
[2020-08-07] MEDS ORDERED: TPN 24 HR with Sodium Chloride CONC. 4 MEQ/ML 100 MEQ, Potassium Chloride TPN 50 MEQ, P... CENT\\PICC SCH (17:00)
[2020-08-08] MEDS: ceFAZolin 2 GM PREMIX 2 GM/50 ML BAG IVPB SCH ×3 (06:21→22:27)
[2020-08-08 07:03] LABS: Albumin 2.4 g/dL (3.2-5.2); Albumin/Globulin Ratio 0.9 (1-3); BUN/Creatinine Ratio 32.9 (8-20); Calcium 8.5 mg/dL (8.6-10.3); EGFR African American 132.3 (>60); EGFR Non-African American 109.4 (>60); Globulin 2.6 g/dL (2-4); Phosphorus 2.5 mg/dL (2.5-5.0); Potassium 4.1 mmol/L (3.5-5.0); Total Bilirubin 0.7 mg/dL (0.2-1.0)
[2020-08-08] MEDS: SPIRIVA Respimat (tiotropium) 2.5 mcg/inh Inhaler INH SCH (09:03)
[2020-08-08] MEDS: Polyethylene Glycol 3350 17 GM PACKET PO SCH ×2 (09:37→22:39)
[2020-08-08] MEDS: Multivitamins/Minerals TAB PO SCH (09:37)
[2020-08-08] MEDS ORDERED: Midazolam 10 mg/10 ml VIAL 1 mg/ml 10 ml VIAL (10 mg) ONE (10:00)
[2020-08-08] MEDS ORDERED: fentaNYL 100 mcg/2 ml 50 MCG/ML VIAL ONE (10:00)
[2020-08-08 10:08] LABS: C Reactive Protein 110.85 mg/L (<8.01)
[2020-08-08] MEDS ORDERED: NS 0.9% IV ONE (17:30)
[2020-08-08 18:00] LABS: Hematocrit 38 % (42-52); Hemoglobin 13.1 g/dL (14.0-18.0)
[2020-08-08 18:22] LABS: BUN/Creatinine Ratio 30.7 (8-20); Calcium 8.8 mg/dL (8.6-10.3); EGFR African American 122.2 (>60); Potassium 4.3 mmol/L (3.5-5.0)
[2020-08-08] MEDS: [UNRECOGNIZED DRUG - NUTRITION] CENTR SCH (18:44)
[2020-08-08] MEDS ORDERED: Enoxaparin 80 MG/0.8 ML SYR SUBCUT SCH (21:00)
[2020-08-08] MEDS: NS 0.9% 1000 ml BAG 1,000 ML IV SCH (22:26)
[2020-08-08 22:42] LABS: Hematocrit 30 % (42-52); Hemoglobin 10.4 g/dL (14.0-18.0)
[2020-08-09 05:02] LABS: Hematocrit 25 % (42-52); Hemoglobin 8.7 g/dL (14.0-18.0); Mean Corpuscular HGB Conc 35 g/dL (31-36); Mean Corpuscular Hemoglobin 34 pg (27-31); Mean Corpuscular Volume 97 fL (80-94); Mean Platelet Volume 6.3 fL (7.4-10.4); Platelet Count 323 10^3/uL (150-450); Red Blood Count 2.56 10^6 /uL (4.18-5.48); Red Cell Distribution Width 13 % (10-15); White Blood Count 6.6 10^3/uL (3.5-10.8)
[2020-08-09] MEDS: ceFAZolin 2 GM PREMIX 2 GM/50 ML BAG IVPB SCH ×3 (05:14→23:17)
[2020-08-09 05:22] LABS: BUN/Creatinine Ratio 48.4 (8-20); Calcium 7.5 mg/dL (8.6-10.3); EGFR African American 152.2 (>60); EGFR Non-African American 125.8 (>60); Potassium 3.9 mmol/L (3.5-5.0)
[2020-08-09] MEDS: NS 0.9% 1000 ml BAG 1,000 ML IV SCH ×2 (07:05→22:55)
[2020-08-09] MEDS: Polyethylene Glycol 3350 17 GM PACKET PO SCH ×2 (07:33→23:02)
[2020-08-09] MEDS ORDERED: TPN 24 HR with Dextrose 50% Water 500 ML, Amino Acid Infusion 10% 1,000 ML, Lipid Emuls... CENTR SCH (08:32)
[2020-08-09] MEDS: Multivitamins/Minerals TAB PO SCH (08:51)
[2020-08-09] MEDS: SPIRIVA Respimat (tiotropium) 2.5 mcg/inh Inhaler INH SCH (09:00)
[2020-08-09] MEDS ORDERED: Midazolam 10 mg/10 ml VIAL 1 mg/ml 10 ml VIAL (10 mg) ONE (17:14)
[2020-08-09] MEDS ORDERED: fentaNYL 100 mcg/2 ml 50 MCG/ML VIAL ONE (17:14)
[2020-08-09] MEDS: TPN 24 HR with Dextrose 50% Water 500 ML, Amino Acid Infusion 10% 1,000 ML, Lipid Emuls... CENTR SCH (22:57)
[2020-08-09 23:05] LABS: Hematocrit 25 % (42-52); Hemoglobin 8.6 g/dL (14.0-18.0)
[2020-08-09 23:50] LABS: Hepatitis B Surface Antigen Nonreactive (Nonreactive)
[2020-08-10 00:07] LABS: Hepatitis C Antibody Negative (Negative)
[2020-08-10 05:16] LABS: ABS Eosinophils 0.1 10^3/ul (0-0.6); ABS Lymphocytes 0.8 10^3/ul (1.0-4.8); ABS Monocytes 0.5 10^3/ul (0-0.8); ABS Neutrophils 3.6 10^3/ul (1.5-7.7); Eosinophil % 2.4 %; Hematocrit 22 % (42-52); Hemoglobin 7.8 g/dL (14.0-18.0); Lymphocyte % 16.9 %; Mean Corpuscular HGB Conc 35 g/dL (31-36); Mean Corpuscular Hemoglobin 31 pg (27-31); Mean Corpuscular Volume 90 fL (80-94); Mean Platelet Volume 6.4 fL (7.4-10.4); Platelet Count 274 10^3/uL (150-450); Red Blood Count 2.49 10^6 /uL (4.18-5.48); Red Cell Distribution Width 20 % (10-15)
[2020-08-10 05:33] LABS: INR 1.25 (0.82-1.09)
[2020-08-10 05:36] LABS: Albumin 1.8 g/dL (3.2-5.2); BUN/Creatinine Ratio 42.1 (8-20); Calcium 7.4 mg/dL (8.6-10.3); EGFR African American 167.7 (>60); EGFR Non-African American 138.6 (>60); Globulin 1.8 g/dL (2-4); Total Bilirubin 0.4 mg/dL (0.2-1.0); Total Protein 3.6 g/dL (6.4-8.9)
[2020-08-10] MEDS: ceFAZolin 2 GM PREMIX 2 GM/50 ML BAG IVPB SCH ×2 (05:56→15:04)
[2020-08-10] MEDS: Polyethylene Glycol 3350 17 GM PACKET PO SCH (07:31)
[2020-08-10] MEDS: Multivitamins/Minerals TAB PO SCH (07:32)
[2020-08-10] MEDS: SPIRIVA Respimat (tiotropium) 2.5 mcg/inh Inhaler INH SCH (07:53)
[2020-08-10] MEDS: NS 0.9% 1000 ml BAG 1,000 ML IV SCH (08:26)
[2020-08-10 10:25] LABS: Hepatitis A Ab IgM Negative (Negative); Hepatitis B Core IgM Nonreactive (Nonreactive)
[2020-08-10 11:30] LABS: Hematocrit 23 % (42-52); Hemoglobin 7.9 g/dL (14.0-18.0)
[2020-08-10 15:38] VITALS: BP 144/57
[2020-08-10 18:01] LABS: Hematocrit 26 % (42-52)
[2020-08-10] MEDS: TPN 24 HR with Dextrose 50% Water 500 ML, Amino Acid Infusion 10% 1,000 ML, Lipid Emuls... CENTR SCH (19:17)
[2020-08-11 13:14] LABS: TB1 Ag minus Nil Result 0.01 IU/mL
[2020-08-11 13:17] LABS: QuantiferonTb Gold Plus Result Negative (Negative)
== END 2020-08-10 19:30 | disposition short-term general hospital (02) ==
LOC: ED 02:24 → SSU 07:28
PROVIDERS: ADMIT Hospitalist; ATTEND Internal Medicine

== ENCOUNTER 2021-09-25 14:29 | Inpatient (IN) ==
[2021-09-25 15:36] LABS: ABS Lymphocytes 0.4 10^3/ul (1.0-4.8); ABS Monocytes 0.6 10^3/ul (0-0.8); ABS Neutrophils 2.9 10^3/ul (1.5-7.7); Eosinophil % 0.2 %; Hematocrit 42 % (42-52); Hemoglobin 14.7 g/dL (14.0-18.0); Lymphocyte % 9.2 %; Mean Corpuscular HGB Conc 35 g/dL (31-36); Mean Corpuscular Hemoglobin 34 pg (27-31); Mean Corpuscular Volume 98 fL (80-94); Mean Platelet Volume 7.5 fL (7.4-10.4); Nucleated Red Blood Cells % 0.1; Platelet Count 177 10^3/uL (150-450); Red Blood Count 4.27 10^6 /uL (4.18-5.48); Red Cell Distribution Width 13 % (10-15); White Blood Count 3.9 10^3/uL (3.5-10.8)
[2021-09-25 15:55] LABS: Troponin I 0.02 ng/mL (<0.03)
[2021-09-25 16:01] LABS: Albumin 4.2 g/dL (3.2-5.2); Albumin/Globulin Ratio 1.8 (1-3); C Reactive Protein 5.29 mg/L (<8.01); Calcium 9.7 mg/dL (8.6-10.3); Globulin 2.3 g/dL (2-4); Potassium 3.7 mmol/L (3.5-5.0); Total Bilirubin 0.7 mg/dL (0.2-1.0); Total Protein 6.5 g/dL (6.4-8.9); eGFR CKD-EPI 79.9 (>60)
[2021-09-25 16:43] LABS: Activated Partial Thrombo Time 32.9 seconds (26.0-38.0); INR 1.09 (0.86-1.15)
[2021-09-25] MEDS ORDERED: Dexamethasone IV 4 MG/ML VIAL 1 ml VIAL IV SLOW PU ONE (17:09)
[2021-09-25] MEDS ORDERED: Remdesivir 100 mg Vial 200 MG in NS 0.9% 250 ml 210 ML IV ONE (18:59)
[2021-09-25] MEDS ORDERED: Albuterol/Ipratropium NEB.SOL (2.5/0.5 MG) 3 ML NEB.SOLN INH PRN (19:05)
[2021-09-25] MEDS ORDERED: Magnesium Hydroxide LIQ 30 ML UDC PO PRN (19:07)
[2021-09-25] MEDS: Enoxaparin 40 MG/0.4 ML SYR SUBCUT SCH (20:23)
[2021-09-25 20:51] LABS: Troponin I 0.04 ng/mL (<0.03)
[2021-09-26 00:22] LABS: Troponin I 0.04 ng/mL (<0.03)
[2021-09-26 06:58] LABS: INR 1.16 (0.86-1.15)
[2021-09-26 07:53] LABS: Albumin/Globulin Ratio 1.7 (1-3); Calcium 9.5 mg/dL (8.6-10.3); Globulin 2.4 g/dL (2-4); Total Bilirubin 0.7 mg/dL (0.2-1.0); Total Protein 6.4 g/dL (6.4-8.9); eGFR CKD-EPI 89.3 (>60)
[2021-09-26] MEDS: SPIRIVA Respimat (tiotropium) 2.5 mcg/inh Inhaler INH SCH (08:31)
[2021-09-26] MEDS: Fluticasone NASAL SPRAY 50MCG 16 gm SPRAY BTL INTRANASAL SCH (13:17)
[2021-09-26] MEDS ORDERED: Remdesivir 100 mg Vial 100 MG in NS 0.9% 250 ml 230 ML IV SCH (21:00)
[2021-09-26] MEDS: Enoxaparin 40 MG/0.4 ML SYR SUBCUT SCH (21:32)
[2021-09-27 06:44] LABS: INR 1.08 (0.86-1.15)
[2021-09-27 06:56] LABS: Albumin 3.9 g/dL (3.2-5.2); Albumin/Globulin Ratio 1.6 (1-3); Calcium 9.6 mg/dL (8.6-10.3); Globulin 2.4 g/dL (2-4); Total Bilirubin 0.6 mg/dL (0.2-1.0); Total Protein 6.3 g/dL (6.4-8.9)
[2021-09-27 07:16] LABS: Potassium 4.6 mmol/L (3.5-5.0)
[2021-09-27] MEDS: SPIRIVA Respimat (tiotropium) 2.5 mcg/inh Inhaler INH SCH (07:38)
[2021-09-27] MEDS: Fluticasone NASAL SPRAY 50MCG 16 gm SPRAY BTL INTRANASAL SCH (09:21)
[2021-09-27] MEDS ORDERED: Remdesivir 100 mg Vial 100 MG in NS 0.9% 250 ml 230 ML IV ONE (10:24)
[2021-09-27 11:30] VITALS: BP 99/54
== END 2021-09-27 14:00 | disposition home or self-care (01) | DRG 177 ==
LOC: ED 14:29 → MED 19:07
PROVIDERS: ADMIT Family Medicine; ATTEND Family Medicine

== ENCOUNTER 2021-10-05 22:16 | Inpatient (IN) ==
[2021-10-05 23:37] LABS: ABS Lymphocytes 0.7 10^3/ul (1.0-4.8); ABS Monocytes 0.9 10^3/ul (0-0.8); ABS Neutrophils 5.3 10^3/ul (1.5-7.7); Eosinophil % 0.5 %; Hematocrit 50 % (42-52); Hemoglobin 17.6 g/dL (14.0-18.0); Lymphocyte % 10.5 %; Mean Corpuscular HGB Conc 35 g/dL (31-36); Mean Corpuscular Hemoglobin 34 pg (27-31); Mean Corpuscular Volume 97 fL (80-94); Mean Platelet Volume 7.5 fL (7.4-10.4); Nucleated Red Blood Cells % 0.3; Platelet Count 240 10^3/uL (150-450); Red Blood Count 5.19 10^6 /uL (4.18-5.48); Red Cell Distribution Width 13 % (10-15)
[2021-10-05 23:53] LABS: ALT 32 U/L (7-52); AST 21 U/L (13-39); Albumin 3.9 g/dL (3.2-5.2); Albumin/Globulin Ratio 1.6 (1-3); Alkaline Phosphatase 64 U/L (35-149); Anion Gap 7 mmol/L (2-11); Blood Urea Nitrogen 19 mg/dL (6-24); C Reactive Protein 7.25 mg/L (<8.01); CO2 Carbon Dioxide 27 mmol/L (22-32); Calcium 9.3 mg/dL (8.6-10.3); Chloride 96 mmol/L (101-111); Globulin 2.4 g/dL (2-4); Glucose 91 mg/dL (70-100); Potassium 3.6 mmol/L (3.5-5.0); Sodium 130 mmol/L (135-145); Total Protein 6.3 g/dL (6.4-8.9); eGFR CKD-EPI 69.5 (>60)
[2021-10-06 00:50] LABS: Troponin I 0.02 ng/mL (<0.03)
[2021-10-06] MEDS ORDERED: Albuterol 2.5mg/3 ml (0.083%) NEB.SOLN INH PRN (01:21)
[2021-10-06] MEDS ORDERED: Remdesivir 100 mg Vial 200 MG in NS 0.9% 250 ml 210 ML IV ONE (01:28)
[2021-10-06 01:39] LABS: INR 1.04 (0.86-1.15)
[2021-10-06 02:00] LABS: Activated Partial Thrombo Time 29.5 seconds (26.0-38.0)
[2021-10-06] MEDS ORDERED: Azithromycin 500 mg/250 mL NS IVPB ONE (02:00)
[2021-10-06] MEDS: Albuterol/Ipratropium NEB.SOL (2.5/0.5 MG) 3 ML NEB.SOLN INH SCH ×3 (03:00→11:45)
[2021-10-06 04:22] LABS: PCO2 Arterial 25 mmHg (35-45); PO2 Arterial 90 mmHg (80-100)
[2021-10-06] MEDS ORDERED: Heparin 5000 UNITS/ML 1 mL VIAL SUBCUT SCH (06:00)
[2021-10-06 06:21] LABS: Hematocrit 48 % (42-52); Hemoglobin 16.6 g/dL (14.0-18.0); Mean Corpuscular HGB Conc 35 g/dL (31-36); Mean Corpuscular Hemoglobin 34 pg (27-31); Mean Corpuscular Volume 97 fL (80-94); Mean Platelet Volume 7.8 fL (7.4-10.4); Platelet Count 202 10^3/uL (150-450); Red Blood Count 4.93 10^6 /uL (4.18-5.48); Red Cell Distribution Width 13 % (10-15)
[2021-10-06 06:27] LABS: INR 1.18 (0.86-1.15)
[2021-10-06 06:37] LABS: Blood Urea Nitrogen 20 mg/dL (6-24); CO2 Carbon Dioxide 23 mmol/L (22-32); Calcium 8.5 mg/dL (8.6-10.3); Chloride 99 mmol/L (101-111); Glucose 126 mg/dL (70-100); Sodium 131 mmol/L (135-145); eGFR CKD-EPI 65.1 (>60)
[2021-10-06] MEDS: Mometasone/Formoter 200/5 MDI INH SCH ×2 (06:39→20:09)
[2021-10-06 06:40] LABS: Anion Gap 9 mmol/L (2-11)
[2021-10-06] MEDS ORDERED: Lactated Ringers 500 ml BAG 500 ML IV ONE (07:00)
[2021-10-06 07:13] LABS: Magnesium 1.7 mg/dL (1.9-2.7); Potassium Redraw 3.8 mmol/L (3.5-5.0)
[2021-10-06 08:04] LABS: ABS Basophils 0.1 10^3/ul (0-0.2); ABS Lymphocytes 0.3 10^3/ul (1.0-4.8); ABS Monocytes 0.6 10^3/ul (0-0.8); Lymphocyte % 1.6 %
[2021-10-06] MEDS ORDERED: Magnesium Sulfate 2 gm BAG 2 GM/50 ML BAG IVPB ONE (08:16)
[2021-10-06] MEDS: Enoxaparin 40 MG/0.4 ML SYR SUBCUT SCH (08:48)
[2021-10-06] MEDS: cefTRIAXone 1 gm/50 mL NS BAG 1 GM/50 ML BAG IVPB SCH (10:40)
[2021-10-06] MEDS ORDERED: Albuterol/Ipratropium NEB.SOL (2.5/0.5 MG) 3 ML NEB.SOLN INH PRN (11:19)
[2021-10-06] MEDS: Fluticasone NASAL SPRAY 50MCG 16 gm SPRAY BTL INTRANASAL SCH (13:17)
[2021-10-06] MEDS: Albuterol HFA INHALER 8 gm MDI INH SCH ×2 (15:01→20:15)
[2021-10-06 19:07] LABS: Calcium 8.6 mg/dL (8.6-10.3); Magnesium 2.3 mg/dL (1.9-2.7); Potassium 4.2 mmol/L (3.5-5.0); eGFR CKD-EPI 69.5 (>60)
[2021-10-06] MEDS ORDERED: Albuterol HFA INHALER 8 gm MDI INH PRN (20:46)
[2021-10-07] MEDS: Azithromycin 500 mg/250 ml NS 500 MG/250 ML BAG IVPB SCH (02:32)
[2021-10-07] MEDS: Mometasone/Formoter 200/5 MDI INH SCH ×2 (07:54→20:04)
[2021-10-07 08:20] LABS: INR 1.07 (0.86-1.15)
[2021-10-07 08:33] LABS: Albumin 3.2 g/dL (3.2-5.2); Albumin/Globulin Ratio 1.5 (1-3); Calcium 9.2 mg/dL (8.6-10.3); Globulin 2.2 g/dL (2-4); Potassium 4.1 mmol/L (3.5-5.0); Total Bilirubin 0.7 mg/dL (0.2-1.0); Total Protein 5.4 g/dL (6.4-8.9); eGFR CKD-EPI 74.4 (>60)
[2021-10-07] MEDS: cefTRIAXone 1 gm/50 mL NS BAG 1 GM/50 ML BAG IVPB SCH (09:57)
[2021-10-07] MEDS: Enoxaparin 40 MG/0.4 ML SYR SUBCUT SCH (09:57)
[2021-10-07] MEDS: Fluticasone NASAL SPRAY 50MCG 16 gm SPRAY BTL INTRANASAL SCH (09:58)
[2021-10-07] MEDS: Remdesivir 100 mg Vial 100 MG in NS 0.9% 250 ml 230 ML IV SCH (10:45)
[2021-10-07] MEDS: Multivitamins/Minerals TAB PO SCH (15:27)
[2021-10-08] MEDS: Azithromycin 500 mg/250 ml NS 500 MG/250 ML BAG IVPB SCH (03:09)
[2021-10-08] MEDS: Mometasone/Formoter 200/5 MDI INH SCH (07:55)
[2021-10-08 08:51] VITALS: BP 138/71
[2021-10-08 08:51] LABS: ABS Lymphocytes 0.8 10^3/ul (1.0-4.8); ABS Monocytes 0.5 10^3/ul (0-0.8); ABS Neutrophils 4.3 10^3/ul (1.5-7.7); Eosinophil % 0.1 %; Hematocrit 42 % (42-52); Hemoglobin 14.8 g/dL (14.0-18.0); Lymphocyte % 14.9 %; Mean Corpuscular HGB Conc 35 g/dL (31-36); Mean Corpuscular Hemoglobin 35 pg (27-31); Mean Corpuscular Volume 98 fL (80-94); Mean Platelet Volume 7.6 fL (7.4-10.4); Platelet Count 177 10^3/uL (150-450); Red Blood Count 4.28 10^6 /uL (4.18-5.48); Red Cell Distribution Width 13 % (10-15); White Blood Count 5.6 10^3/uL (3.5-10.8)
[2021-10-08] MEDS: cefTRIAXone 1 gm/50 mL NS BAG 1 GM/50 ML BAG IVPB SCH (08:51)
[2021-10-08] MEDS: Multivitamins/Minerals TAB PO SCH (08:51)
[2021-10-08] MEDS: Enoxaparin 40 MG/0.4 ML SYR SUBCUT SCH (08:52)
[2021-10-08] MEDS: Fluticasone NASAL SPRAY 50MCG 16 gm SPRAY BTL INTRANASAL SCH (08:52)
[2021-10-08 08:54] LABS: INR 1.06 (0.86-1.15)
[2021-10-08 09:00] LABS: Albumin 3.1 g/dL (3.2-5.2); Albumin/Globulin Ratio 1.6 (1-3); Calcium 9.2 mg/dL (8.6-10.3); Potassium 4.7 mmol/L (3.5-5.0); Total Bilirubin 0.7 mg/dL (0.2-1.0); Total Protein 5.1 g/dL (6.4-8.9); eGFR CKD-EPI 86.3 (>60)
[2021-10-08] MEDS: Remdesivir 100 mg Vial 100 MG in NS 0.9% 250 ml 230 ML IV SCH (09:37)
== END 2021-10-08 14:30 | disposition home or self-care (01) | DRG 177 ==
LOC: ED 22:16 → EDHOLD 10-06 01:22 → SUATTDRO 10-06 01:22 → EDHOLD 10-06 07:16 → MED 10-06 07:58
PROVIDERS: ADMIT Internal Medicine; ATTEND Hospitalist

== ENCOUNTER 2022-07-15 20:52 | Inpatient (IN) ==
[2022-07-15] MEDS ORDERED: Azithromycin 500 mg/250 ml NS 500 MG/250 ML BAG IVPB ONE (22:22)
[2022-07-15] MEDS ORDERED: cefTRIAXone 1 gm/50 mL D5W 1 GM/50 ML BAG IV ONE (22:22)
[2022-07-15] MEDS ORDERED: methylPREDNISolone SOD SUCC 125 mg 2 ML VIAL IV ONE (22:31)
[2022-07-15 22:35] LABS: Hematocrit 46 % (42-52); Hemoglobin 15.5 g/dL (14.0-18.0); Mean Corpuscular HGB Conc 34 g/dL (31-36); Mean Corpuscular Hemoglobin 34 pg (27-31); Mean Corpuscular Volume 100 fL (80-94); Mean Platelet Volume 7.5 fL (7.4-10.4); Platelet Count 220 10^3/uL (150-450); Red Blood Count 4.56 10^6 /uL (4.18-5.48); Red Cell Distribution Width 13 % (10-15); White Blood Count 15.8 10^3/uL (3.5-10.8)
[2022-07-15 22:41] LABS: ABS Basophils 0.2 10^3/ul (0-0.2); ABS Lymphocytes 0.4 10^3/ul (1.0-4.8); ABS Monocytes 0.5 10^3/ul (0-0.8); ABS Neutrophils 14.8 10^3/ul (1.5-7.7); Eosinophil % 0.1 %; Lymphocyte % 2.3 %
[2022-07-15 22:57] LABS: Albumin/Globulin Ratio 1.9 (1-3); Calcium 9.5 mg/dL (8.6-10.3); Globulin 2.1 g/dL (2-4); Potassium 3.9 mmol/L (3.5-5.0); Total Bilirubin 1.7 mg/dL (0.2-1.0); Total Protein 6.1 g/dL (6.4-8.9); eGFR CKD-EPI 89.4 (>60)
[2022-07-16] MEDS ORDERED: Albuterol HFA INHALER 8 gm MDI INH ONE (00:08)
[2022-07-16 00:10] LABS: High Sensitivity Troponin 1 Hr 98 pg/mL (<20)
[2022-07-16] MEDS ORDERED: Multivitamins/Minerals TAB PO ONE (00:14)
[2022-07-16] MEDS ORDERED: NS 0.9% 1000 ml BAG 1,000 ML IV SCH (00:15)
[2022-07-16 01:16] LABS: C Reactive Protein 12.39 mg/L (<8.01)
[2022-07-16] MEDS: Enoxaparin 40 MG/0.4 ML SYR SUBCUT SCH (01:34)
[2022-07-16 02:18] LABS: Urine Appearance Clear; Urine Bilirubin Negative (Negative); Urine Blood Negative (Negative); Urine Color Yellow; Urine Glucose Negative (Negative); Urine Ketones Trace (Negative); Urine Nitrite Negative (Negative); Urine Protein Negative (Negative); Urine Urobilinogen Negative (Negative)
[2022-07-16 02:37] LABS: High Sensitivity Troponin 3 Hr 107 pg/mL (<20)
[2022-07-16] MEDS: Albuterol HFA INHALER 8 gm MDI INH SCH ×5 (05:32→19:16)
[2022-07-16 06:46] LABS: ABS Lymphocytes 0.4 10^3/ul (1.0-4.8); ABS Monocytes 0.3 10^3/ul (0-0.8); ABS Neutrophils 18.3 10^3/ul (1.5-7.7); Hematocrit 45 % (42-52); Hemoglobin 15.7 g/dL (14.0-18.0); Lymphocyte % 2.2 %; Mean Corpuscular HGB Conc 35 g/dL (31-36); Mean Corpuscular Hemoglobin 35 pg (27-31); Mean Corpuscular Volume 100 fL (80-94); Platelet Count 223 10^3/uL (150-450); Red Blood Count 4.53 10^6 /uL (4.18-5.48); Red Cell Distribution Width 13 % (10-15); White Blood Count 19.1 10^3/uL (3.5-10.8)
[2022-07-16 06:55] LABS: Albumin/Globulin Ratio 1.7 (1-3); Calcium 9.7 mg/dL (8.6-10.3); Globulin 2.4 g/dL (2-4); Potassium 4.1 mmol/L (3.5-5.0); Total Protein 6.4 g/dL (6.4-8.9); eGFR CKD-EPI 83.5 (>60)
[2022-07-16] MEDS: SPIRIVA Respimat (tiotropium) 2.5 mcg/inh Inhaler INH SCH (07:43)
[2022-07-16] MEDS ORDERED: Perflutren Lipid Microsphere 3 ML VIAL ONE (08:18)
[2022-07-16] MEDS: Fluticasone NASAL SPRAY 50MCG 16 gm SPRAY BTL INTRANASAL SCH (10:30)
[2022-07-16] MEDS: PTO: Multivitamins/Mins AREDS2 (NF) CAP PO SCH ×2 (10:31→20:41)
[2022-07-16] MEDS ORDERED: Iohexol 350 (CONTRAST) 500 ML MDV IV ONE (11:48)
[2022-07-16 14:07] LABS: High Sensitivity Troponin 1 Hr 64 pg/mL (<20)
[2022-07-16 15:57] LABS: High Sensitivity Troponin 3 Hr 78 pg/mL (<20)
[2022-07-16 17:14] LABS: Direct Bilirubin 0.3 mg/dL (0.03-0.18)
[2022-07-16] MEDS ORDERED: Albuterol HFA INHALER 8 gm MDI INH PRN (19:21)
[2022-07-17] MEDS: cefTRIAXone 1 GM Q24H (ADVAN) IVPB SCH
[2022-07-17] MEDS ORDERED: cefTRIAXone 1 gm/50 mL D5W 1 GM/50 ML BAG IV SCH
[2022-07-17] MEDS: Azithromycin 500 mg/250 ml NS 500 MG/250 ML BAG IVPB SCH (00:49)
[2022-07-17] MEDS ORDERED: NS 0.9% 1000 ml BAG 1,000 ML IV SCH (02:00)
[2022-07-17 05:57] LABS: ABS Lymphocytes 0.9 10^3/ul (1.0-4.8); ABS Monocytes 0.9 10^3/ul (0-0.8); ABS Neutrophils 13.9 10^3/ul (1.5-7.7); Hematocrit 40 % (42-52); Hemoglobin 13.7 g/dL (14.0-18.0); Lymphocyte % 5.6 %; Mean Corpuscular HGB Conc 34 g/dL (31-36); Mean Corpuscular Hemoglobin 34 pg (27-31); Mean Corpuscular Volume 101 fL (80-94); Mean Platelet Volume 8.1 fL (7.4-10.4); Platelet Count 206 10^3/uL (150-450); Red Blood Count 3.99 10^6 /uL (4.18-5.48); Red Cell Distribution Width 13 % (10-15); White Blood Count 15.7 10^3/uL (3.5-10.8)
[2022-07-17] MEDS: Enoxaparin 40 MG/0.4 ML SYR SUBCUT SCH (05:58)
[2022-07-17 06:00] LABS: INR 1.07 (0.89-1.11)
[2022-07-17 06:15] LABS: Albumin 3.4 g/dL (3.2-5.2); Albumin/Globulin Ratio 1.7 (1-3); Calcium 9.4 mg/dL (8.6-10.3); Total Bilirubin 0.8 mg/dL (0.2-1.0); Total Protein 5.4 g/dL (6.4-8.9); eGFR CKD-EPI 82.5 (>60)
[2022-07-17] MEDS: SPIRIVA Respimat (tiotropium) 2.5 mcg/inh Inhaler INH SCH (08:20)
[2022-07-17] MEDS: PTO: Multivitamins/Mins AREDS2 (NF) CAP PO SCH ×2 (11:18→21:37)
[2022-07-17] MEDS: Fluticasone NASAL SPRAY 50MCG 16 gm SPRAY BTL INTRANASAL SCH (11:20)
[2022-07-17] MEDS ORDERED: Furosemide 40 mg/4 ml IV VIAL IV ONE (11:59)
[2022-07-17] MEDS ORDERED: Albuterol/Ipratropium NEB.SOL (2.5/0.5 MG) 3 ML NEB.SOLN INH ONE (11:59)
[2022-07-17] MEDS ORDERED: Levalbuterol 0.63MG/3ML NEB UNIT OF USE INH ONE (12:10)
[2022-07-17] MEDS ORDERED: Metoprolol Tartrate 5 mg VIAL 5 ml VIAL (1 mg/ml) ONE (12:23)
[2022-07-17 12:34] LABS: PCO2 Arterial 68 mmHg (35-45); PO2 Arterial 74 mmHg (80-100)
[2022-07-17] MEDS ORDERED: Metoprolol Tartrate 5 mg VIAL 5 ml VIAL (1 mg/ml) IV ONE ×2 (14:00→15:03)
[2022-07-17] MEDS ORDERED: Enoxaparin 100 MG/ML SYR SUBCUT ONE (16:28)
[2022-07-17] MEDS: Digoxin IV 0.5 MG/2 ML AMP (0.25 MG/ML) IV SLOW PU SCH (16:58)
[2022-07-18] MEDS: Digoxin IV 0.5 MG/2 ML AMP (0.25 MG/ML) IV SLOW PU SCH ×3 (01:09→17:07)
[2022-07-18] MEDS: cefTRIAXone 1 GM Q24H (ADVAN) IVPB SCH (01:10)
[2022-07-18] MEDS: Azithromycin 500 mg/250 ml NS 500 MG/250 ML BAG IVPB SCH (02:13)
[2022-07-18 06:02] LABS: ABS Monocytes 0.7 10^3/ul (0-0.8); ABS Neutrophils 9.9 10^3/ul (1.5-7.7); Hematocrit 41 % (42-52); Hemoglobin 13.9 g/dL (14.0-18.0); Lymphocyte % 8.9 %; Mean Corpuscular HGB Conc 34 g/dL (31-36); Mean Corpuscular Hemoglobin 34 pg (27-31); Mean Corpuscular Volume 101 fL (80-94); Mean Platelet Volume 7.9 fL (7.4-10.4); Platelet Count 221 10^3/uL (150-450); Red Blood Count 4.05 10^6 /uL (4.18-5.48); Red Cell Distribution Width 13 % (10-15); White Blood Count 11.6 10^3/uL (3.5-10.8)
[2022-07-18 06:50] LABS: Calcium 9.6 mg/dL (8.6-10.3); Magnesium 2.2 mg/dL (1.9-2.7); Potassium 4.4 mmol/L (3.5-5.0); eGFR CKD-EPI 76.6 (>60)
[2022-07-18] MEDS ORDERED: Furosemide 20 mg/2 ml IV VIAL IV ONE (08:34)
[2022-07-18] MEDS ORDERED: PEG 3000 GI LAVAGE 1 GALLON PO ONE (09:04)
[2022-07-18] MEDS: Fluticasone NASAL SPRAY 50MCG 16 gm SPRAY BTL INTRANASAL SCH (09:08)
[2022-07-18] MEDS: PTO: Multivitamins/Mins AREDS2 (NF) CAP PO SCH ×2 (09:08→22:14)
[2022-07-18] MEDS: SPIRIVA Respimat (tiotropium) 2.5 mcg/inh Inhaler INH SCH (10:03)
[2022-07-18] MEDS ORDERED: Sodium Phosphate ADULT ENEMA 133 ML BTL PR ONE (15:40)
[2022-07-18] MEDS ORDERED: Enoxaparin 100 MG/ML SYR SUBCUT ONE (17:00)
[2022-07-19] MEDS: cefTRIAXone 1 GM Q24H (ADVAN) IVPB SCH (00:08)
[2022-07-19] MEDS: Azithromycin 500 mg/250 ml NS 500 MG/250 ML BAG IVPB SCH (01:34)
[2022-07-19 05:44] LABS: ABS Eosinophils 0.1 10^3/ul (0-0.6); ABS Lymphocytes 0.9 10^3/ul (1.0-4.8); ABS Monocytes 0.4 10^3/ul (0-0.8); ABS Neutrophils 5.5 10^3/ul (1.5-7.7); Eosinophil % 1.8 %; Hematocrit 49 % (42-52); Hemoglobin 16.4 g/dL (14.0-18.0); Lymphocyte % 13.4 %; Mean Corpuscular HGB Conc 34 g/dL (31-36); Mean Corpuscular Hemoglobin 34 pg (27-31); Mean Corpuscular Volume 101 fL (80-94); Mean Platelet Volume 7.4 fL (7.4-10.4); Platelet Count 258 10^3/uL (150-450); Red Blood Count 4.84 10^6 /uL (4.18-5.48); Red Cell Distribution Width 13 % (10-15)
[2022-07-19 06:28] LABS: Calcium 10.1 mg/dL (8.6-10.3); Magnesium 2.1 mg/dL (1.9-2.7); Potassium 3.9 mmol/L (3.5-5.0); eGFR CKD-EPI 84.6 (>60)
[2022-07-19] MEDS: SPIRIVA Respimat (tiotropium) 2.5 mcg/inh Inhaler INH SCH (07:54)
[2022-07-19] MEDS: KCL 10 MEQ/50 ML IVPREMIX 10 MEQ/50 ML BAG IV SCH ×2 (09:19→11:15)
[2022-07-19] MEDS ORDERED: Midazolam 5 mg/5 ml VIAL 1 mg/ml 5 ml VIAL (5 mg) ONE (09:36)
[2022-07-19] MEDS ORDERED: Heparin 1,000 UNIT/ML 10 ml (10,000 UNITS) CATHLAB/DIALYSIS ONE (09:37)
[2022-07-19] MEDS ORDERED: Heparin 2 UNITS/ML 1000 mls 2,000 ML IV ONE (09:37)
[2022-07-19] MEDS ORDERED: nitroGLYCERIN DRIP 25,000 MCG/250 ML BTL ONE (09:37)
[2022-07-19] MEDS ORDERED: VERAPAMIL 2.5 MG/ML 2 ML VIAL ** 5 mg/2 ml ONE (09:37)
[2022-07-19] MEDS ORDERED: fentaNYL 100 mcg/2 ml 50 MCG/ML VIAL ONE (09:37)
[2022-07-19] MEDS ORDERED: Lidocaine 1% MPF 5 ML VIAL ONE (09:38)
[2022-07-19] MEDS ORDERED: Iohexol 350 (CONTRAST) 100 ML PAK IV ONE (09:38)
[2022-07-19] MEDS: PTO: Multivitamins/Mins AREDS2 (NF) CAP PO SCH ×2 (11:16→20:02)
[2022-07-19] MEDS: Fluticasone NASAL SPRAY 50MCG 16 gm SPRAY BTL INTRANASAL SCH (11:16)
[2022-07-20] MEDS: cefTRIAXone 1 GM Q24H (ADVAN) IVPB SCH (00:30)
[2022-07-20 05:08] LABS: ABS Lymphocytes 0.8 10^3/ul (1.0-4.8); ABS Monocytes 0.5 10^3/ul (0-0.8); ABS Neutrophils 5.1 10^3/ul (1.5-7.7); Eosinophil % 0.5 %; Hematocrit 32 % (42-52); Hemoglobin 11.2 g/dL (14.0-18.0); Lymphocyte % 12.2 %; Mean Corpuscular HGB Conc 35 g/dL (31-36); Mean Corpuscular Hemoglobin 35 pg (27-31); Mean Corpuscular Volume 100 fL (80-94); Platelet Count 194 10^3/uL (150-450); Red Blood Count 3.18 10^6 /uL (4.18-5.48); Red Cell Distribution Width 12 % (10-15); White Blood Count 6.5 10^3/uL (3.5-10.8)
[2022-07-20 05:32] LABS: Calcium 8.7 mg/dL (8.6-10.3); Magnesium 1.9 mg/dL (1.9-2.7); Potassium 4.3 mmol/L (3.5-5.0); eGFR CKD-EPI 90.4 (>60)
[2022-07-20] MEDS ORDERED: Magnesium Sulfate IV 1GM/100ML 1 GM/100 ML BAG IV ONE (05:55)
[2022-07-20] MEDS: Fluticasone NASAL SPRAY 50MCG 16 gm SPRAY BTL INTRANASAL SCH (10:38)
[2022-07-20] MEDS: SPIRIVA Respimat (tiotropium) 2.5 mcg/inh Inhaler INH SCH (10:38)
[2022-07-20] MEDS: PTO: Multivitamins/Mins AREDS2 (NF) CAP PO SCH (10:39)
[2022-07-20 15:36] LABS: Rapid COVID-19 Molecular Undetected (Undetected)
[2022-07-20 18:37] VITALS: BP 130/73
== END 2022-07-20 19:45 | disposition short-term general hospital (02) | DRG 871 ==
LOC: ED 20:52 → EDHOLD 20:52 → SUATTDRO 07-16 00:10 → MED 07-16 04:25 → ICU 07-17 12:46
PROVIDERS: ADMIT Student in an Organized Health Care Education/Training Program; ATTEND Internal Medicine

== ENCOUNTER 2022-08-05 14:40 | Observation (INO) ==
[2022-08-05] MEDS ORDERED: Lactated Ringers 1000 ml BAG 1,000 ML IV ONE ×2 (15:31→16:59)
[2022-08-05 15:44] LABS: ABS Lymphocytes 0.9 10^3/ul (1.0-4.8); ABS Monocytes 0.5 10^3/ul (0-0.8); ABS Neutrophils 3.8 10^3/ul (1.5-7.7); Eosinophil % 0.6 %; Hematocrit 42 % (42-52); Hemoglobin 14.4 g/dL (14.0-18.0); Lymphocyte % 17.6 %; Mean Corpuscular HGB Conc 35 g/dL (31-36); Mean Corpuscular Hemoglobin 34 pg (27-31); Mean Corpuscular Volume 97 fL (80-94); Mean Platelet Volume 7.2 fL (7.4-10.4); Nucleated Red Blood Cells % 0.1; Platelet Count 243 10^3/uL (150-450); Red Blood Count 4.28 10^6 /uL (4.18-5.48); Red Cell Distribution Width 13 % (10-15); White Blood Count 5.2 10^3/uL (3.5-10.8)
[2022-08-05 16:10] LABS: High Sens Troponin Baseline 101 pg/mL (<20)
[2022-08-05 16:22] LABS: ALT 38 U/L (7-52); AST 36 U/L (13-39); Albumin 3.8 g/dL (3.2-5.2); Albumin/Globulin Ratio 1.6 (1-3); Alkaline Phosphatase 69 U/L (35-149); Anion Gap 11 mmol/L (2-11); Blood Urea Nitrogen 60 mg/dL (6-24); C Reactive Protein 14.33 mg/L (<8.01); CO2 Carbon Dioxide 18 mmol/L (22-32); Calcium 8.9 mg/dL (8.6-10.3); Chloride 100 mmol/L (101-111); Globulin 2.4 g/dL (2-4); Glucose 96 mg/dL (70-100); Potassium 3.5 mmol/L (3.5-5.0); Sodium 129 mmol/L (135-145); Total Protein 6.2 g/dL (6.4-8.9); eGFR CKD-EPI 15.7 (>60)
[2022-08-05 16:27] LABS: Activated Partial Thrombo Time 29.4 seconds (26.0-38.0); INR 0.96 (0.89-1.11)
[2022-08-05] MEDS ORDERED: Lactated Ringers 1000 ml BAG 1,000 ML IV SCH (17:00)
[2022-08-05 17:10] LABS: High Sensitivity Troponin 1 Hr 87 pg/mL (<20)
[2022-08-05] MEDS ORDERED: Albuterol HFA INHALER 8 gm MDI INH PRN (17:55)
[2022-08-05] MEDS ORDERED: Enoxaparin 30 MG/0.3 ML SYR SUBCUT SCH (18:00)
[2022-08-05 18:19] LABS: Magnesium 2.3 mg/dL (1.9-2.7)
[2022-08-05 18:44] LABS: Folate > 20.00 ng/mL (5.90-24.80)
[2022-08-05 18:45] LABS: Vitamin B12 1195 pg/mL (180-914)
[2022-08-05] MEDS: NF: Multivitamins/Mins AREDS2 (NF) CAP PO SCH (21:57)
[2022-08-06 08:25] LABS: Potassium 3.8 mmol/L (3.5-5.0)
[2022-08-06 08:26] LABS: Calcium 9.1 mg/dL (8.6-10.3); eGFR CKD-EPI 33.9 (>60)
[2022-08-06] MEDS: NF: Multivitamins/Mins AREDS2 (NF) CAP PO SCH (08:26)
[2022-08-06] MEDS ORDERED: SPIRIVA Respimat (tiotropium) 2.5 mcg/inh Inhaler INH SCH (09:00)
[2022-08-06 09:40] LABS: Urine Appearance Clear; Urine Bilirubin Negative (Negative); Urine Blood Negative (Negative); Urine Color Yellow; Urine Glucose Negative (Negative); Urine Ketones Negative (Negative); Urine Nitrite Negative (Negative); Urine Protein Negative (Negative); Urine Urobilinogen 0.2 (Negative) (Negative); Urine pH 5.5 (5.0-9.0)
[2022-08-06 10:09] LABS: Urine Osmo 542 mOsm/kg (150-1150)
[2022-08-06] MEDS ORDERED: Perflutren Lipid Microsphere 3 ML VIAL ONE (14:52)
[2022-08-06 15:51] VITALS: BP 107/62
== END 2022-08-06 15:50 | disposition home or self-care (01) ==
LOC: EDHOLD 14:40 → ED 14:40 → SUATTDRO 17:42 → EDHOLD 17:43
PROVIDERS: ADMIT Internal Medicine; ATTEND Internal Medicine

== ENCOUNTER 2022-08-30 23:20 | Inpatient (IN) ==
[2022-08-30 23:51] LABS: Hematocrit 36 % (42-52); Mean Corpuscular HGB Conc 34 g/dL (31-36); Mean Corpuscular Hemoglobin 32 pg (27-31); Mean Corpuscular Volume 93 fL (80-94); Mean Platelet Volume 6.5 fL (7.4-10.4); Platelet Count 533 10^3/uL (150-450); Red Cell Distribution Width 14 % (10-15); White Blood Count 27.6 10^3/uL (3.5-10.8)
[2022-08-30 23:59] LABS: Activated Partial Thrombo Time 25.4 seconds (26.0-38.0); INR 1.24 (0.88-1.18)
[2022-08-31] MEDS ORDERED: Lidocaine 2% (CARDIAC or IV) 20 MG/ML 5 ML SYRINGE (100 MG) ONE (00:04)
[2022-08-31 00:09] LABS: Toxic Granulation 1+
[2022-08-31] MEDS ORDERED: NS 0.9% 1000 ml BAG 1,000 ML IV ONE (00:11)
[2022-08-31] MEDS ORDERED: Piperacillin/Tazobac ADVAN 3.375 GM in NS 0.9% 100 ml BAG 100 ML IV ONE ×2 (00:11→05:11)
[2022-08-31 00:12] LABS: ABS Basophils 0.1 10^3/ul (0-0.2); ABS Eosinophils 0.2 10^3/ul (0-0.6); ABS Lymphocytes 2.9 10^3/ul (1.0-4.8); ABS Monocytes 1.3 10^3/ul (0-0.8); ABS Neutrophils 23.1 10^3/ul (1.5-7.7); Eosinophil % 0.6 %; Lymphocyte % 10.4 %
[2022-08-31] MEDS ORDERED: NS 0.9% 1000 ml BAG 1,000 ML IV SCH (00:15)
[2022-08-31] MEDS ORDERED: Pantoprazole 80 mg in NS BAG 80 MG/250 ML BAG IV ONE (00:16)
[2022-08-31] MEDS ORDERED: Pantoprazole VIAL 40 MG VIAL IV ONE (00:16)
[2022-08-31] MEDS ORDERED: Octreotide Acetate 50 MCG in NS 0.9% 50 ML 50 ML IV ONE (00:16)
[2022-08-31 00:24] LABS: Albumin 2.8 g/dL (3.2-5.2); Albumin/Globulin Ratio 1.2 (1-3); C Reactive Protein 60.96 mg/L (<8.01); Creatinine, Serum 1.21 mg/dL (0.67-1.17); Globulin 2.3 g/dL (2-4); Total Bilirubin 0.8 mg/dL (0.2-1.0); Total Protein 5.1 g/dL (6.4-8.9); eGFR CKD-EPI 60.9 (>60)
[2022-08-31] MEDS ORDERED: Octreotide Acetate 500 MCG in NS 0.9% 100 ml BAG 100 ML IV SCH (01:00)
[2022-08-31 01:12] LABS: Hematocrit 36 % (42-52); Hemoglobin 12.2 g/dL (14.0-18.0); Mean Corpuscular HGB Conc 34 g/dL (31-36); Mean Corpuscular Hemoglobin 31 pg (27-31); Mean Corpuscular Volume 91 fL (80-94); Mean Platelet Volume 6.3 fL (7.4-10.4); Platelet Count 441 10^3/uL (150-450); Red Blood Count 3.91 10^6 /uL (4.18-5.48); Red Cell Distribution Width 15 % (10-15); White Blood Count 34.1 10^3/uL (3.5-10.8)
[2022-08-31 01:24] LABS: ABS Basophils 0.1 10^3/ul (0-0.2); ABS Lymphocytes 0.7 10^3/ul (1.0-4.8); ABS Monocytes 1.6 10^3/ul (0-0.8); ABS Neutrophils 31.6 10^3/ul (1.5-7.7); Eosinophil % 0.1 %; Lymphocyte % 2.2 %
[2022-08-31] MEDS ORDERED: Iodixanol (CONTRAST) 320 MG/ML 100 ML SDV IV ONE (02:32)
[2022-08-31 03:16] LABS: Hematocrit 32 % (42-52); Hemoglobin 11.1 g/dL (14.0-18.0); Mean Corpuscular HGB Conc 35 g/dL (31-36); Mean Corpuscular Hemoglobin 32 pg (27-31); Mean Corpuscular Volume 91 fL (80-94); Mean Platelet Volume 6.3 fL (7.4-10.4); Platelet Count 379 10^3/uL (150-450); Red Blood Count 3.54 10^6 /uL (4.18-5.48); Red Cell Distribution Width 15 % (10-15); White Blood Count 26.7 10^3/uL (3.5-10.8)
[2022-08-31 03:18] LABS: ABS Basophils 0.1 10^3/ul (0-0.2); ABS Lymphocytes 0.5 10^3/ul (1.0-4.8); ABS Monocytes 1.1 10^3/ul (0-0.8); ABS Neutrophils 24.9 10^3/ul (1.5-7.7); Lymphocyte % 1.9 %
[2022-08-31 03:24] LABS: Activated Partial Thrombo Time 26.3 seconds (26.0-38.0); INR 1.25 (0.88-1.18)
[2022-08-31 03:38] LABS: High Sensitivity Troponin 1 Hr 31 pg/mL (<20)
[2022-08-31 03:39] LABS: Calcium 7.9 mg/dL (8.6-10.3); Creatinine, Serum 1.05 mg/dL (0.67-1.17); eGFR CKD-EPI 72.2 (>60)
[2022-08-31 03:40] LABS: Platelet Count 379 10^3/ul (150-450)
[2022-08-31 04:02] LABS: Schistocytes ABSENT
[2022-08-31] MEDS ORDERED: PEG 3000 GI LAVAGE 1 GALLON PO ONE ×2 (05:11→08:33)
[2022-08-31] MEDS ORDERED: Albuterol HFA INHALER 8 gm MDI INH PRN (05:33)
[2022-08-31 05:42] LABS: Hematocrit 32 % (42-52); Hemoglobin 10.9 g/dL (14.0-18.0)
[2022-08-31] MEDS ORDERED: Zosyn per Pharmacy NOTE FOLLOW UP SCH (06:00)
[2022-08-31] MEDS: Lactated Ringers 1000 ml BAG 1,000 ML IV SCH ×2 (06:39→15:34)
[2022-08-31 09:43] LABS: Hematocrit 28 % (42-52); Hemoglobin 9.9 g/dL (14.0-18.0)
[2022-08-31] MEDS ORDERED: Pantoprazole 80 mg in NS BAG 80 MG/250 ML BAG IV SCH (10:00)
[2022-08-31] MEDS ORDERED: ZOSYN 3.375 GM Q8H per EXTENDED INFUSION IV SCH (10:00)
[2022-08-31 14:24] LABS: Hematocrit 28 % (42-52); Hemoglobin 9.5 g/dL (14.0-18.0)
[2022-08-31] MEDS: ZOSYN 3.375 GM Q8H per EXTENDED INFUSION IV SCH ×2 (14:38→22:39)
[2022-08-31 14:43] LABS: Urine Appearance Turbid; Urine Bilirubin Negative (Negative); Urine Blood Trace (Intact) (Negative); Urine Color Yellow; Urine Glucose Negative (Negative); Urine Ketones Negative (Negative); Urine Nitrite Negative (Negative); Urine Protein 1+ (30 mg/dL) (Negative); Urine Urobilinogen 0.2 (Negative) (Negative); Urine pH 5.5 (5.0-9.0)
[2022-08-31 14:58] LABS: Urine Bacteria 1+ (Absent); Urine Red Blood Cell 2+(6-10/hpf) (Absent); Urine White Blood Cell Trace(0-5/hpf) (Absent)
[2022-08-31] MEDS: SPIRIVA Respimat (tiotropium) 2.5 mcg/inh Inhaler INH SCH (15:54)
[2022-08-31] MEDS ORDERED: fentaNYL 100 mcg/2 ml 50 MCG/ML VIAL ONE ×2 (17:41→17:42)
[2022-08-31] MEDS ORDERED: Midazolam 5 mg/5 ml VIAL 1 mg/ml 5 ml VIAL (5 mg) ONE (17:42)
[2022-08-31] MEDS: PHENYLEPHRINE DRIP IVPREMIX 50 MG/250 ML BAG IV SCH (18:19)
[2022-08-31] MEDS ORDERED: PHENYLEPHRINE DRIP IVPREMIX 50 MG/250 ML BAG IV ONE (18:19)
[2022-08-31] MEDS ORDERED: Phenylephrine 40 mcg/mL 10mL (400mcg) SYRINGE IV PUSH ONE (18:34)
[2022-08-31 23:44] LABS: Hematocrit 30 % (42-52); Hemoglobin 10.3 g/dL (14.0-18.0)
[2022-08-31 23:52] LABS: INR 1.28 (0.88-1.18)
[2022-09-01] MEDS: Pantoprazole 80 mg in NS BAG 80 MG/250 ML BAG IV SCH ×3 (00:54→21:00)
[2022-09-01] MEDS: Lactated Ringers 1000 ml BAG 1,000 ML IV SCH ×4 (01:06→22:33)
[2022-09-01 06:25] LABS: Hematocrit 29 % (42-52); Hemoglobin 10.4 g/dL (14.0-18.0); Mean Corpuscular HGB Conc 36 g/dL (31-36); Mean Corpuscular Hemoglobin 32 pg (27-31); Mean Corpuscular Volume 89 fL (80-94); Mean Platelet Volume 6.3 fL (7.4-10.4); Platelet Count 285 10^3/uL (150-450); Red Blood Count 3.23 10^6 /uL (4.18-5.48); Red Cell Distribution Width 15 % (10-15); White Blood Count 6.2 10^3/uL (3.5-10.8)
[2022-09-01] MEDS: ZOSYN 3.375 GM Q8H per EXTENDED INFUSION IV SCH ×3 (06:41→23:04)
[2022-09-01 06:59] LABS: Calcium 7.7 mg/dL (8.6-10.3); Creatinine, Serum 0.86 mg/dL (0.67-1.17); eGFR CKD-EPI 88.1 (>60)
[2022-09-01 07:00] LABS: INR 1.35 (0.88-1.18)
[2022-09-01 07:10] LABS: ABS Eosinophils 0.2 10^3/ul (0-0.6); ABS Lymphocytes 0.6 10^3/ul (1.0-4.8); ABS Monocytes 0.5 10^3/ul (0-0.8); ABS Neutrophils 4.8 10^3/ul (1.5-7.7); Eosinophil % 3.8 %; Lymphocyte % 10.3 %
[2022-09-01] MEDS: SPIRIVA Respimat (tiotropium) 2.5 mcg/inh Inhaler INH SCH (08:05)
[2022-09-01] MEDS: PHENYLEPHRINE DRIP IVPREMIX 50 MG/250 ML BAG IV SCH (08:23)
[2022-09-01 15:26] LABS: Hematocrit 27 % (42-52); Hemoglobin 9.1 g/dL (14.0-18.0)
[2022-09-02 00:17] LABS: Hematocrit 25 % (42-52); Hemoglobin 8.4 g/dL (14.0-18.0)
[2022-09-02 05:28] LABS: Hematocrit 26 % (42-52); Hemoglobin 8.9 g/dL (14.0-18.0); Mean Corpuscular HGB Conc 34 g/dL (31-36); Mean Corpuscular Hemoglobin 31 pg (27-31); Mean Corpuscular Volume 90 fL (80-94); Mean Platelet Volume 6.2 fL (7.4-10.4); Platelet Count 264 10^3/uL (150-450); Red Blood Count 2.87 10^6 /uL (4.18-5.48); Red Cell Distribution Width 16 % (10-15); White Blood Count 7.1 10^3/uL (3.5-10.8)
[2022-09-02] MEDS: ZOSYN 3.375 GM Q8H per EXTENDED INFUSION IV SCH ×3 (05:39→21:09)
[2022-09-02 06:05] LABS: Calcium 7.7 mg/dL (8.6-10.3); Creatinine, Serum 0.75 mg/dL (0.67-1.17); Magnesium 1.6 mg/dL (1.9-2.7); Potassium 3.6 mmol/L (3.5-5.0); eGFR CKD-EPI 91.8 (>60)
[2022-09-02] MEDS ORDERED: Magnesium Sulfate 2 gm BAG 2 GM/50 ML BAG IVPB ONE (06:26)
[2022-09-02] MEDS: Pantoprazole 80 mg in NS BAG 80 MG/250 ML BAG IV SCH ×2 (06:59→16:56)
[2022-09-02] MEDS: SPIRIVA Respimat (tiotropium) 2.5 mcg/inh Inhaler INH SCH (07:26)
[2022-09-02] MEDS: KCL 20 MEQ/100 ML IVPREMIX 20 MEQ/100 ML BAG IV SCH ×2 (08:17→09:50)
[2022-09-02 10:50] LABS: Hematocrit 26 % (42-52); Hemoglobin 9.2 g/dL (14.0-18.0)
[2022-09-02] MEDS: Lactated Ringers 1000 ml BAG 1,000 ML IV SCH (11:43)
[2022-09-02 17:16] LABS: Hematocrit 26 % (42-52); Hemoglobin 8.8 g/dL (14.0-18.0)
[2022-09-02 22:57] LABS: Hematocrit 26 % (42-52); Hemoglobin 8.8 g/dL (14.0-18.0)
[2022-09-03] MEDS: Lactated Ringers 1000 ml BAG 1,000 ML IV SCH ×2 (01:10→14:38)
[2022-09-03] MEDS: Pantoprazole 80 mg in NS BAG 80 MG/250 ML BAG IV SCH ×3 (03:23→22:45)
[2022-09-03 03:44] LABS: Hematocrit 26 % (42-52); Hemoglobin 9.1 g/dL (14.0-18.0); Mean Corpuscular HGB Conc 35 g/dL (31-36); Mean Corpuscular Hemoglobin 31 pg (27-31); Mean Corpuscular Volume 88 fL (80-94); Mean Platelet Volume 5.9 fL (7.4-10.4); Platelet Count 308 10^3/uL (150-450); Red Blood Count 2.96 10^6 /uL (4.18-5.48); Red Cell Distribution Width 16 % (10-15); White Blood Count 9.2 10^3/uL (3.5-10.8)
[2022-09-03 04:05] LABS: ABS Basophils 0.1 10^3/ul (0-0.2); ABS Eosinophils 0.3 10^3/ul (0-0.6); ABS Lymphocytes 0.7 10^3/ul (1.0-4.8); ABS Monocytes 0.3 10^3/ul (0-0.8); ABS Neutrophils 7.8 10^3/ul (1.5-7.7); Eosinophil % 3.5 %
[2022-09-03 04:26] LABS: Calcium 7.9 mg/dL (8.6-10.3); Magnesium 1.8 mg/dL (1.9-2.7); Potassium 3.6 mmol/L (3.5-5.0)
[2022-09-03 04:31] LABS: Creatinine, Serum 0.66 mg/dL (0.67-1.17); eGFR CKD-EPI 95.4 (>60)
[2022-09-03] MEDS: ZOSYN 3.375 GM Q8H per EXTENDED INFUSION IV SCH ×3 (05:08→22:15)
[2022-09-03] MEDS: SPIRIVA Respimat (tiotropium) 2.5 mcg/inh Inhaler INH SCH (07:58)
[2022-09-03] MEDS ORDERED: Magnesium Sulfate IV 3 GM in NS 0.9% 100 ml BAG 100 ML IVPB ONE (08:33)
[2022-09-03] MEDS ORDERED: Potassium Chloride LIQUID 20 MEQ/15 ML LIQUID PO ONE (08:33)
[2022-09-03 09:23] LABS: Hematocrit 25 % (42-52); Mean Corpuscular HGB Conc 36 g/dL (31-36); Mean Corpuscular Hemoglobin 32 pg (27-31); Mean Corpuscular Volume 88 fL (80-94); Platelet Count 308 10^3/uL (150-450); Red Blood Count 2.86 10^6 /uL (4.18-5.48); Red Cell Distribution Width 15 % (10-15); White Blood Count 9.3 10^3/uL (3.5-10.8)
[2022-09-03] MEDS: KCL 10 MEQ/50 ML IVPREMIX 10 MEQ/50 ML BAG IV SCH ×2 (09:26→10:37)
[2022-09-03 09:45] LABS: ABS Eosinophils 0.2 10^3/ul (0-0.6); ABS Lymphocytes 0.8 10^3/ul (1.0-4.8); ABS Monocytes 0.4 10^3/ul (0-0.8); Eosinophil % 2.1 %; Lymphocyte % 8.5 %; Nucleated Red Blood Cells % 0.1
[2022-09-03 17:20] LABS: Hematocrit 23 % (42-52); Hemoglobin 8.1 g/dL (14.0-18.0)
[2022-09-03 21:00] LABS: Hematocrit 23 % (42-52); Hemoglobin 8.1 g/dL (14.0-18.0)
[2022-09-04] MEDS: Lactated Ringers 1000 ml BAG 1,000 ML IV SCH ×2 (00:21→10:18)
[2022-09-04 02:24] LABS: Hematocrit 23 % (42-52)
[2022-09-04] MEDS: ZOSYN 3.375 GM Q8H per EXTENDED INFUSION IV SCH ×3 (05:20→23:43)
[2022-09-04 05:37] LABS: Hematocrit 23 % (42-52); Hemoglobin 8.1 g/dL (14.0-18.0); Mean Corpuscular HGB Conc 35 g/dL (31-36); Mean Corpuscular Hemoglobin 31 pg (27-31); Mean Corpuscular Volume 89 fL (80-94); Mean Platelet Volume 5.8 fL (7.4-10.4); Platelet Count 314 10^3/uL (150-450); Red Cell Distribution Width 15 % (10-15); White Blood Count 9.8 10^3/uL (3.5-10.8)
[2022-09-04 05:56] LABS: ABS Basophils 0.1 10^3/ul (0-0.2); ABS Eosinophils 0.2 10^3/ul (0-0.6); ABS Lymphocytes 0.8 10^3/ul (1.0-4.8); ABS Monocytes 0.4 10^3/ul (0-0.8); ABS Neutrophils 8.4 10^3/ul (1.5-7.7); Eosinophil % 2.5 %; Lymphocyte % 8.3 %
[2022-09-04 06:22] LABS: Calcium 7.7 mg/dL (8.6-10.3); Creatinine, Serum 0.61 mg/dL (0.67-1.17); Magnesium 1.8 mg/dL (1.9-2.7); Potassium 3.8 mmol/L (3.5-5.0); eGFR CKD-EPI 97.7 (>60)
[2022-09-04] MEDS ORDERED: Potassium Chlor 20 meq TAB.ER PO ONE (06:33)
[2022-09-04] MEDS ORDERED: Magnesium Sulfate IV 1GM/100ML 1 GM/100 ML BAG IV ONE (06:33)
[2022-09-04] MEDS: SPIRIVA Respimat (tiotropium) 2.5 mcg/inh Inhaler INH SCH (07:46)
[2022-09-04] MEDS: Pantoprazole 80 mg in NS BAG 80 MG/250 ML BAG IV SCH ×2 (08:39→18:15)
[2022-09-04] MEDS ORDERED: Lidocaine 1% VIAL 10 MG/ML VIAL 30 ML ONE (13:58)
[2022-09-04] MEDS ORDERED: Heparin 2 UNITS/ML IVPREMIX 2,000 UNIT/1,000 ML BAG IV ONE (13:58)
[2022-09-04] MEDS ORDERED: Iohexol 350 (CONTRAST) 100 ML PAK IV ONE ×5 (13:58→16:56)
[2022-09-04] MEDS ORDERED: Midazolam 5 mg/5 ml VIAL 1 mg/ml 5 ml VIAL (5 mg) ONE (14:28)
[2022-09-04] MEDS ORDERED: fentaNYL 100 mcg/2 ml 50 MCG/ML VIAL ONE (14:28)
[2022-09-04] MEDS ORDERED: Heparin 2 UNITS/ML IVPREMIX 1,000 UNIT/500 ML BAG IV ONE ×2 (16:46→16:57)
[2022-09-04 18:05] LABS: Hematocrit 21 % (42-52); Hemoglobin 7.1 g/dL (14.0-18.0)
[2022-09-04] MEDS ORDERED: Lactated Ringers 1000 ml BAG 1,000 ML IV ONE (18:40)
[2022-09-04 23:08] LABS: Hematocrit 24 % (42-52); Hemoglobin 8.3 g/dL (14.0-18.0)
[2022-09-05 04:02] LABS: Hematocrit 25 % (42-52); Hemoglobin 8.4 g/dL (14.0-18.0); Mean Corpuscular HGB Conc 34 g/dL (31-36); Mean Corpuscular Hemoglobin 29 pg (27-31); Mean Corpuscular Volume 86 fL (80-94); Mean Platelet Volume 6.2 fL (7.4-10.4); Platelet Count 285 10^3/uL (150-450); Red Blood Count 2.87 10^6 /uL (4.18-5.48); Red Cell Distribution Width 16 % (10-15); White Blood Count 11.5 10^3/uL (3.5-10.8)
[2022-09-05 04:23] LABS: Calcium 7.8 mg/dL (8.6-10.3); Creatinine, Serum 0.65 mg/dL (0.67-1.17); Magnesium 1.9 mg/dL (1.9-2.7); eGFR CKD-EPI 95.9 (>60)
[2022-09-05 04:28] LABS: ABS Basophils 0.1 10^3/ul (0-0.2); ABS Eosinophils 0.5 10^3/ul (0-0.6); ABS Lymphocytes 1.2 10^3/ul (1.0-4.8); ABS Monocytes 0.7 10^3/ul (0-0.8); ABS Neutrophils 9.1 10^3/ul (1.5-7.7); Eosinophil % 4.3 %; Lymphocyte % 10.3 %
[2022-09-05] MEDS: Pantoprazole 80 mg in NS BAG 80 MG/250 ML BAG IV SCH ×2 (04:32→14:40)
[2022-09-05] MEDS: ZOSYN 3.375 GM Q8H per EXTENDED INFUSION IV SCH ×3 (05:48→23:08)
[2022-09-05] MEDS: SPIRIVA Respimat (tiotropium) 2.5 mcg/inh Inhaler INH SCH (07:36)
[2022-09-05] MEDS: Lactated Ringers 1000 ml BAG 1,000 ML IV SCH ×2 (09:31→17:27)
[2022-09-06] MEDS: Lactated Ringers 1000 ml BAG 1,000 ML IV SCH ×3 (01:41→21:22)
[2022-09-06] MEDS: Pantoprazole 80 mg in NS BAG 80 MG/250 ML BAG IV SCH ×2 (01:43→11:56)
[2022-09-06] MEDS: ZOSYN 3.375 GM Q8H per EXTENDED INFUSION IV SCH ×3 (05:20→21:22)
[2022-09-06 05:39] LABS: Hematocrit 19 % (42-52); Hemoglobin 6.5 g/dL (14.0-18.0); Mean Corpuscular HGB Conc 35 g/dL (31-36); Mean Corpuscular Hemoglobin 31 pg (27-31); Mean Corpuscular Volume 89 fL (80-94); Platelet Count 255 10^3/uL (150-450); Red Blood Count 2.12 10^6 /uL (4.18-5.48); Red Cell Distribution Width 16 % (10-15); White Blood Count 8.4 10^3/uL (3.5-10.8)
[2022-09-06 06:17] LABS: Albumin 2.1 g/dL (3.2-5.2); Albumin/Globulin Ratio 1.6 (1-3); Calcium 7.6 mg/dL (8.6-10.3); Creatinine, Serum 0.61 mg/dL (0.67-1.17); Globulin 1.3 g/dL (2-4); Magnesium 1.5 mg/dL (1.9-2.7); Potassium 3.6 mmol/L (3.5-5.0); Total Bilirubin 0.6 mg/dL (0.2-1.0); Total Protein 3.4 g/dL (6.4-8.9); eGFR CKD-EPI 97.7 (>60)
[2022-09-06] MEDS ORDERED: Magnesium Sulfate IV 3 GM in NS 0.9% 100 ml BAG 100 ML IVPB ONE (07:33)
[2022-09-06] MEDS: SPIRIVA Respimat (tiotropium) 2.5 mcg/inh Inhaler INH SCH (07:53)
[2022-09-06 08:40] LABS: RBC Morphology Normal (Normal)
[2022-09-06 08:41] LABS: ABS Eosinophils 0.4 10^3/ul (0-0.6); ABS Lymphocytes 0.8 10^3/ul (1.0-4.8); ABS Monocytes 0.3 10^3/ul (0-0.8); ABS Neutrophils 6.8 10^3/ul (1.5-7.7); Eosinophil % 5.1 %
[2022-09-06] MEDS ORDERED: Iohexol 350 (CONTRAST) 500 ML MDV IV ONE (08:52)
[2022-09-06] MEDS ORDERED: PEG 3000 GI LAVAGE 1 GALLON PO ONE (10:46)
[2022-09-06] MEDS ORDERED: fentaNYL 100 mcg/2 ml 50 MCG/ML VIAL ONE (16:34)
[2022-09-06] MEDS ORDERED: Midazolam 5 mg/5 ml VIAL 1 mg/ml 5 ml VIAL (5 mg) ONE (16:34)
[2022-09-06] MEDS: PTO: Multivitamins/Mins AREDS2 (NF) CAP PO SCH (21:22)
[2022-09-07] MEDS: Pantoprazole 80 mg in NS BAG 80 MG/250 ML BAG IV SCH ×3 (00:49→22:10)
[2022-09-07] MEDS: ZOSYN 3.375 GM Q8H per EXTENDED INFUSION IV SCH ×2 (05:09→14:55)
[2022-09-07] MEDS: Lactated Ringers 1000 ml BAG 1,000 ML IV SCH ×3 (05:24→22:10)
[2022-09-07 05:39] LABS: ABS Eosinophils 0.3 10^3/ul (0-0.6); ABS Lymphocytes 0.6 10^3/ul (1.0-4.8); ABS Monocytes 0.3 10^3/ul (0-0.8); ABS Neutrophils 5.5 10^3/ul (1.5-7.7); Eosinophil % 4.6 %; Hematocrit 20 % (42-52); Hemoglobin 6.7 g/dL (14.0-18.0); Lymphocyte % 8.5 %; Mean Corpuscular HGB Conc 34 g/dL (31-36); Mean Corpuscular Hemoglobin 31 pg (27-31); Mean Corpuscular Volume 91 fL (80-94); Mean Platelet Volume 6.6 fL (7.4-10.4); Nucleated Red Blood Cells % 0.1; Platelet Count 214 10^3/uL (150-450); Red Blood Count 2.19 10^6 /uL (4.18-5.48); Red Cell Distribution Width 16 % (10-15); White Blood Count 6.7 10^3/uL (3.5-10.8)
[2022-09-07 06:12] LABS: Calcium 7.7 mg/dL (8.6-10.3); Creatinine, Serum 0.64 mg/dL (0.67-1.17); Magnesium 1.8 mg/dL (1.9-2.7); Potassium 3.6 mmol/L (3.5-5.0); eGFR CKD-EPI 96.3 (>60)
[2022-09-07] MEDS: SPIRIVA Respimat (tiotropium) 2.5 mcg/inh Inhaler INH SCH (08:16)
[2022-09-07] MEDS ORDERED: Magnesium Sulfate 2 gm BAG 2 GM/50 ML BAG IVPB ONE (09:30)
[2022-09-07] MEDS: PTO: Multivitamins/Mins AREDS2 (NF) CAP PO SCH ×3 (09:51→19:48)
[2022-09-07] MEDS ORDERED: Lidocaine 1% MPF 5 ML VIAL INJ ONE (10:47)
[2022-09-07 17:51] LABS: Hematocrit 27 % (42-52); Mean Corpuscular HGB Conc 34 g/dL (31-36); Mean Corpuscular Hemoglobin 31 pg (27-31); Mean Corpuscular Volume 91 fL (80-94); Mean Platelet Volume 6.2 fL (7.4-10.4); Platelet Count 275 10^3/uL (150-450); Red Blood Count 2.94 10^6 /uL (4.18-5.48); Red Cell Distribution Width 16 % (10-15); White Blood Count 10.6 10^3/uL (3.5-10.8)
[2022-09-08] MEDS: Lactated Ringers 1000 ml BAG 1,000 ML IV SCH ×3 (05:28→22:37)
[2022-09-08 05:48] LABS: ABS Basophils 0.1 10^3/ul (0-0.2); ABS Eosinophils 0.4 10^3/ul (0-0.6); ABS Lymphocytes 0.7 10^3/ul (1.0-4.8); ABS Monocytes 0.3 10^3/ul (0-0.8); ABS Neutrophils 5.8 10^3/ul (1.5-7.7); Eosinophil % 5.4 %; Hematocrit 26 % (42-52); Hemoglobin 8.8 g/dL (14.0-18.0); Lymphocyte % 9.6 %; Mean Corpuscular HGB Conc 34 g/dL (31-36); Mean Corpuscular Hemoglobin 31 pg (27-31); Mean Corpuscular Volume 91 fL (80-94); Mean Platelet Volume 6.3 fL (7.4-10.4); Nucleated Red Blood Cells % 0.1; Platelet Count 272 10^3/uL (150-450); Red Blood Count 2.89 10^6 /uL (4.18-5.48); Red Cell Distribution Width 16 % (10-15); White Blood Count 7.2 10^3/uL (3.5-10.8)
[2022-09-08 06:26] LABS: Creatinine, Serum 0.57 mg/dL (0.67-1.17); Potassium 3.3 mmol/L (3.5-5.0); eGFR CKD-EPI 99.7 (>60)
[2022-09-08] MEDS ORDERED: Potassium Chloride LIQUID 20 MEQ/15 ML LIQUID PO ONE (07:56)
[2022-09-08] MEDS: SPIRIVA Respimat (tiotropium) 2.5 mcg/inh Inhaler INH SCH ×2 (08:16→08:17)
[2022-09-08 09:23] LABS: Magnesium 1.8 mg/dL (1.9-2.7)
[2022-09-08] MEDS: PTO: Multivitamins/Mins AREDS2 (NF) CAP PO SCH ×2 (09:35→21:14)
[2022-09-08] MEDS: Pantoprazole 80 mg in NS BAG 80 MG/250 ML BAG IV SCH ×4 (10:37→21:16)
[2022-09-08 18:33] LABS: Hematocrit 27 % (42-52); Hemoglobin 9.1 g/dL (14.0-18.0)
[2022-09-09 06:14] LABS: Hematocrit 29 % (42-52); Hemoglobin 9.6 g/dL (14.0-18.0); Mean Corpuscular HGB Conc 34 g/dL (31-36); Mean Corpuscular Hemoglobin 31 pg (27-31); Mean Corpuscular Volume 93 fL (80-94); Mean Platelet Volume 6.5 fL (7.4-10.4); Platelet Count 304 10^3/uL (150-450); Red Blood Count 3.07 10^6 /uL (4.18-5.48); Red Cell Distribution Width 17 % (10-15); White Blood Count 7.3 10^3/uL (3.5-10.8)
[2022-09-09 06:32] LABS: Calcium 8.2 mg/dL (8.6-10.3); Creatinine, Serum 0.55 mg/dL (0.67-1.17); Potassium 3.6 mmol/L (3.5-5.0); eGFR CKD-EPI 100.8 (>60)
[2022-09-09] MEDS: SPIRIVA Respimat (tiotropium) 2.5 mcg/inh Inhaler INH SCH (07:45)
[2022-09-09] MEDS: Pantoprazole 80 mg in NS BAG 80 MG/250 ML BAG IV SCH (09:25)
[2022-09-09] MEDS: PTO: Multivitamins/Mins AREDS2 (NF) CAP PO SCH ×2 (09:25→20:29)
[2022-09-09 16:29] LABS: C Reactive Protein 11.61 mg/L (<8.01)
[2022-09-10 06:13] LABS: Hematocrit 29 % (42-52); Hemoglobin 10.4 g/dL (14.0-18.0); Mean Corpuscular HGB Conc 36 g/dL (31-36); Mean Corpuscular Hemoglobin 33 pg (27-31); Mean Corpuscular Volume 94 fL (80-94); Mean Platelet Volume 6.4 fL (7.4-10.4); Platelet Count 311 10^3/uL (150-450); Red Blood Count 3.14 10^6 /uL (4.18-5.48); Red Cell Distribution Width 17 % (10-15); White Blood Count 9.8 10^3/uL (3.5-10.8)
[2022-09-10 06:29] LABS: Calcium 8.6 mg/dL (8.6-10.3); Creatinine, Serum 0.63 mg/dL (0.67-1.17); Potassium 3.6 mmol/L (3.5-5.0); eGFR CKD-EPI 96.8 (>60)
[2022-09-10] MEDS: SPIRIVA Respimat (tiotropium) 2.5 mcg/inh Inhaler INH SCH (07:23)
[2022-09-10] MEDS: PTO: Multivitamins/Mins AREDS2 (NF) CAP PO SCH ×2 (08:22→20:47)
[2022-09-11] MEDS: PTO: Multivitamins/Mins AREDS2 (NF) CAP PO SCH ×2 (07:53→20:18)
[2022-09-11] MEDS: SPIRIVA Respimat (tiotropium) 2.5 mcg/inh Inhaler INH SCH (08:38)
[2022-09-12 05:38] LABS: ABS Eosinophils 0.2 10^3/ul (0-0.6); ABS Lymphocytes 0.7 10^3/ul (1.0-4.8); ABS Monocytes 0.6 10^3/ul (0-0.8); ABS Neutrophils 6.9 10^3/ul (1.5-7.7); Eosinophil % 1.9 %; Hematocrit 29 % (42-52); Hemoglobin 9.6 g/dL (14.0-18.0); Lymphocyte % 7.9 %; Mean Corpuscular HGB Conc 33 g/dL (31-36); Mean Corpuscular Hemoglobin 31 pg (27-31); Mean Corpuscular Volume 94 fL (80-94); Mean Platelet Volume 6.5 fL (7.4-10.4); Nucleated Red Blood Cells % 0.1; Platelet Count 295 10^3/uL (150-450); Red Cell Distribution Width 19 % (10-15); White Blood Count 8.4 10^3/uL (3.5-10.8)
[2022-09-12 06:15] LABS: Calcium 8.4 mg/dL (8.6-10.3); Magnesium 1.7 mg/dL (1.9-2.7); Potassium 3.7 mmol/L (3.5-5.0)
[2022-09-12 06:20] LABS: Creatinine, Serum 0.62 mg/dL (0.67-1.17); eGFR CKD-EPI 97.2 (>60)
[2022-09-12] MEDS ORDERED: Potassium Chlor 20 meq TAB.ER PO ONE (07:41)
[2022-09-12] MEDS: PTO: Multivitamins/Mins AREDS2 (NF) CAP PO SCH ×2 (08:24→21:09)
[2022-09-12] MEDS: SPIRIVA Respimat (tiotropium) 2.5 mcg/inh Inhaler INH SCH (11:49)
[2022-09-13 05:53] LABS: ABS Eosinophils 0.1 10^3/ul (0-0.6); ABS Lymphocytes 0.6 10^3/ul (1.0-4.8); ABS Monocytes 0.8 10^3/ul (0-0.8); ABS Neutrophils 8.2 10^3/ul (1.5-7.7); Eosinophil % 1.2 %; Hematocrit 29 % (42-52); Hemoglobin 9.6 g/dL (14.0-18.0); Lymphocyte % 6.1 %; Mean Corpuscular HGB Conc 33 g/dL (31-36); Mean Corpuscular Hemoglobin 32 pg (27-31); Mean Corpuscular Volume 95 fL (80-94); Mean Platelet Volume 6.7 fL (7.4-10.4); Platelet Count 292 10^3/uL (150-450); Red Blood Count 3.06 10^6 /uL (4.18-5.48); Red Cell Distribution Width 19 % (10-15); White Blood Count 9.7 10^3/uL (3.5-10.8)
[2022-09-13 07:14] VITALS: BP 134/53
[2022-09-13] MEDS: SPIRIVA Respimat (tiotropium) 2.5 mcg/inh Inhaler INH SCH (08:32)
[2022-09-13 09:03] LABS: Rapid COVID-19 Molecular Undetected (Undetected)
[2022-09-13] MEDS: PTO: Multivitamins/Mins AREDS2 (NF) CAP PO SCH (09:43)
[2022-09-15 15:03] LABS: Calprotectin 1028 mcg/g
== END 2022-09-13 10:45 | DRG 377 ==
LOC: ED 23:20 → SUATTDRO 08-31 04:53 → EDHOLD 08-31 04:53 → ICU 08-31 07:31 → MED 09-05 23:03
PROVIDERS: ADMIT Internal Medicine Critical Care Medicine; ATTEND Internal Medicine

== ENCOUNTER 2024-02-23 12:51 | Observation (INO) ==
[2024-02-23 15:28] LABS: ABS Basophils 0.1 10^3/uL (0.0-0.1); ABS Lymphocytes 0.4 10^3/uL (1.0-4.8); ABS Monocytes 0.5 10^3/uL (0.0-1.1); ABS Neutrophils 8.7 10^3/uL (1.5-7.6); ABS Nucleated RBC 0.01 10^3/ul; Eosinophil % 0.3 %; Hematocrit 48.6 % (38-53); Hemoglobin 16.3 g/dL (13.2-16.3); Mean Corpuscular Hemoglobin 31.4 pg (27-33); Mean Corpuscular Hgb Conc 33.5 g/dL (31-36); Mean Corpuscular Volume 93.5 fL (80-97); Mean Platelet Volume 6.8 fL (7.5-11.2); Nucleated Red Blood Cells % 0.1 %/100WBC (0.0-0.8); Platelet Count 275 10^3/uL (150-450); Red Cell Distribution Width 15.2 % (12-17); White Blood Count 9.7 10^3/uL (3.6-10.2)
[2024-02-23 16:02] LABS: Rapid Strep Molecular Negative (Negative)
[2024-02-23 16:17] LABS: Albumin 4.2 g/dL (3.2-5.2); Albumin/Globulin Ratio 1.4 (1-3); C Reactive Protein 28.64 mg/L (<8.01); Calcium 10.5 mg/dL (8.6-10.3); Creatinine, Serum 0.95 mg/dL (0.67-1.17); Globulin 2.9 g/dL (2-4); Potassium 3.9 mmol/L (3.5-5.0); Total Bilirubin 1.2 mg/dL (0.2-1.0); Total Protein 7.1 g/dL (6.4-8.9); eGFR CKD-EPI 80.4 (>60)
[2024-02-23] MEDS: Lactated Ringers 1000 ml BAG 1,000 ML IV ONE (17:26)
[2024-02-23] MEDS: cefTRIAXone 1 gm/50 mL D5W 1 GM/50 ML BAG IV ONE (17:40)
[2024-02-23] MEDS: Azithromycin 500 mg/250 ml NS 500 MG/250 ML BAG IVPB ONE (17:40)
[2024-02-23] MEDS ORDERED: Albuterol/Ipratropium NEB.SOL (2.5/0.5 MG) 3 ML NEB.SOLN INH PRN (19:55)
[2024-02-23] MEDS: methylPREDNISolone SOD SUCC 40 mg/ml 1 ml VIAL IV ONE (20:17)
[2024-02-23] MEDS: Enoxaparin 40 MG/0.4 ML SYR SUBCUT SCH (20:17)
[2024-02-24] MEDS: Furosemide 40 mg/4 ml IV VIAL IV ONE (05:16)
[2024-02-24 05:18] LABS: ABS Lymphocytes 0.4 10^3/uL (1.0-4.8); ABS Monocytes 0.2 10^3/uL (0.0-1.1); ABS Neutrophils 4.8 10^3/uL (1.5-7.6); Hematocrit 43.9 % (38-53); Hemoglobin 15.2 g/dL (13.2-16.3); Lymphocyte % 6.8 %; Mean Corpuscular Hemoglobin 32.2 pg (27-33); Mean Corpuscular Hgb Conc 34.6 g/dL (31-36); Nucleated Red Blood Cells % 0.1 %/100WBC (0.0-0.8); Platelet Count 248 10^3/uL (150-450); Red Blood Count 4.72 10^6/uL (4.06-5.63); Red Cell Distribution Width 15.5 % (12-17); White Blood Count 5.3 10^3/uL (3.6-10.2)
[2024-02-24 05:53] LABS: Calcium 9.5 mg/dL (8.6-10.3); Creatinine, Serum 0.73 mg/dL (0.67-1.17); Magnesium 1.8 mg/dL (1.9-2.7); Potassium 4.3 mmol/L (3.5-5.0); eGFR CKD-EPI 91.4 (>60)
[2024-02-24 06:43] LABS: Urine Appearance Clear; Urine Bilirubin Negative (Negative); Urine Blood Negative (Negative); Urine Color Light-Yellow; Urine Glucose Negative (Negative); Urine Ketones Trace (Negative); Urine Nitrite Negative (Negative); Urine Protein Negative (Negative); Urine Specific Gravity 1.013 (1.002-1.030); Urine Urobilinogen Negative (Negative)
[2024-02-24] MEDS: Magnesium Sulfate 2 gm BAG 2 GM/50 ML BAG IVPB ONE (08:26)
[2024-02-24] MEDS: Sulfur Hexaflouride MICROSPHR 25 MG VIAL IV ONE (13:37)
[2024-02-24 13:50] VITALS: BP 128/71
[2024-02-24] MEDS ORDERED: cefTRIAXone 1 gm/50 mL D5W 1 GM/50 ML BAG IV SCH (17:00)
[2024-02-27 00:24] LABS: Anaplasma phagocytophilum Negative (Negative); B. miyamotoi PCR, B Negative (Negative); Babesia divergens/MO-1 Negative (Negative); Babesia ducani Negative (Negative); Ehrlichia chaffeensis Negative (Negative); Ehrlichia ewingii/canis Negative (Negative); Ehrlichia muris eauclairensis Negative (Negative)
== END 2024-02-24 16:05 | disposition home or self-care (01) ==
LOC: ED 12:51 → EDHOLD 12:51 → MED 20:38
PROVIDERS: ADMIT Hospitalist; ATTEND Hospitalist